=== PATIENT | female | born 1940 | race Caucasian/White ===

== ENCOUNTER → 2016-12-03 | Outpatient (CLI) | payer MEDICARE, BC ==
--- NOTE | 2016-12-04 10:19 | MM ---
Reason for exam: screening (asymptomatic). Last mammogram was performed 3 years and 2 months ago. History: Patient is postmenopausal and has history of high-risk lesion on a previous biopsy at age 70. High risk left breast needle localization of the left breast, June 27, 2010. Physical Findings: A clinical breast exam by your physician is recommended on an annual basis and results should be correlated with mammographic findings. MG Screening Mammo w CAD Bilateral CC and MLO view(s) were taken. Prior study comparison: September 26, 2013, mammogram, performed at [facility]. The breast tissue is heterogeneously dense. This may lower the sensitivity of mammography. Finding: There are fine, heterogeneous, grouped/clustered calcifications in the upper inner quadrant, middle position of the left breast. Previous mammotome biopsy in the left breast. New finding since September 26, 2013. ASSESSMENT: Incomplete: need additional imaging evaluation, BI-RAD 0 RECOMMENDATION: Special view mammogram of the left breast. [facility] will attempt to contact patient to return for supplemental views.
== END | disposition home or self-care (01) ==
LOC: RADMAMWWP 14:45
PROVIDERS: ATTEND Internal Medicine
DX: Z12.31 Encounter for screening mammogram for malignant neoplasm of breast (principal)

== ENCOUNTER → 2016-12-31 | Outpatient (CLI) | payer MEDICARE, BC ==
--- NOTE | 2016-12-31 13:18 | MM ---
Reason for exam: additional evaluation requested from abnormal screening. Last mammogram was performed 1 month ago. History: Patient is postmenopausal and has history of high-risk lesion on a previous biopsy at age 70. High risk left breast needle localization of the left breast, June 27, 2010. Physical Findings: Nurse did not find any significant physical abnormalities on exam. MG 3D Work Up W/Cad LT ML, CC with magnification, and ML with magnification view(s) were taken of the left breast. Prior study comparison: December 03, 2016, bilateral MG screening mammo w CAD. September 26, 2013, mammogram, performed at [facility]. The breast tissue is heterogeneously dense. This may lower the sensitivity of mammography. Finding: There are indeterminate grouped/clustered calcifications in the upper quadrant, central position of the left breast. These results were verbally communicated with the patient and result sheet given to the patient on 12/31/16. ASSESSMENT: Suspicious, BI-RAD 4 RECOMMENDATION: Surgical consultation and needle biopsy of the left breast. Called Dr. Kee with mammographic findings and has scheduled an appointment for the patient for 01/05/17 at 11:[address] Berumen. PRELIMINARY REPORT CALLED AND FAXED TO DR. BERUMEN ON 12/31/16 AT 300/TP.
== END | disposition home or self-care (01) ==
LOC: RADMAMWWP 10:52
PROVIDERS: ATTEND Internal Medicine
DX: R92.8 Other abnormal and inconclusive findings on diagnostic imaging of breast (principal)
CPT/HCPCS: G0206; G0279

== ENCOUNTER → 2017-01-14 | Day surgery (SDC) | payer MEDICARE, BC ==
--- NOTE | 2017-01-14 12:37 | MM ---
EXAMINATION TYPE: MG discontinued stereo core LT DATE OF EXAM: 01/14/2017 11:59 AM COMPARISON: Mammogram 12/31/2016 and 12/03/2016 CLINICAL HISTORY: Abnormal mammogram TECHNIQUE: Stereotactic guided core biopsy of left breast. FINDINGS: The procedure of stereotactic guided core biopsy was explained to the patient. Benefits, a lternatives, and risks were discussed. An informed consent was then obtained. [facility] However, due to thin breast tissue stereotactic biopsy c ould not be performed and needle localization suggested. IMPRESSION: Discontinued stereotactic core biopsy due to enhancement. Thickness of tissue. Needle loc alization suggested.
== END ==
LOC: RADMAMWWP 11:08
PROVIDERS: ATTEND Surgery
DX: R92.8 Other abnormal and inconclusive findings on diagnostic imaging of breast (principal); Z53.8 Procedure and treatment not carried out for other reasons

== ENCOUNTER 2017-01-23 10:41 | Day surgery (SDC) | payer MEDICARE, BC ==
[2017-01-21 10:55] VITALS: BMI 20.7
[~2017-01-23 10:41] MED LIST: ALPRAZolam 0.25 MG TAB PO PRN; DEXAMETHASONE SOD PHOSPHATE 10 MG/ML 1 ML VIAL IV ONE; HYDROmorphone 1 MG/ML 1 ML SYRINGE IVP PRN; LACTATED RINGERS 1,000 ML IV SCH; ONDANSETRON 4 MG/2 ML VIAL IVP ONE; Pre Op ABX Message 1 EACH MISC MISCELLANE ONE
[2017-01-23] MEDS ORDERED: LIDOCAINE 1% INJ 10MG/ML (20 ML MDV) SQ ONE (12:28)
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
[2017-01-23] MEDS ORDERED: LIDOCAINE 1% INJ 10MG/ML (20 ML MDV) ONE (13:42)
[2017-01-23] MEDS ORDERED: MIDAZOLAM 2 MG/2 ML VIAL ONE (13:42)
[2017-01-23] MEDS ORDERED: PROPOFOL 10 MG/ML 20 ML VIAL IV ONE (13:42)
[2017-01-23] MEDS ORDERED: ePHEDrine 50 MG/ML 1 ML AMP ONE (13:42)
[2017-01-23] MEDS ORDERED: SUCCINYLCHOLINE CHLORIDE 100 MG/5 ML SYR IV ONE (13:42)
[2017-01-23] MEDS ORDERED: BUPIVACAIN-EPI 0.25%-1:200,000 30 ML VIAL SQ ONE ×2 (14:02)
--- NOTE | 2017-01-23 14:27 | MM ---
EXAMINATION TYPE: MG pre op needle loc LT DATE OF EXAM: 01/23/2017 COMPARISON: Previous mammogram dated 12/03/2016 CLINICAL HISTORY: TECHNIQUE: Needle localization with wire placement and surgical excision of area of concern in the left breast. FINDINGS: The procedure of needle localization with wire placement and than surgical excision was explained to the patient. Benefits, alternatives, and risks were discussed. An informed consent was then obtained. The shortest pathway for procedure was chosen. Shortest pathway was craniocaudad approach. The overlying skin was prepped and draped in usual sterile fashion. Lidocaine buffered with bicarbonate was used as anesthetic into the skin and subcutaneous tissue up to the level of area of concern. A 5 cm needle was used. It was placed via a craniocaudad approach under mammographic guidance. Subsequent 90 degrees mammogram show the needle to be in satisfactory position relative to the targeted area. At this point, wire was placed and the needle was withdrawn. The wire was fixed to patient's skin. Images were marked for surgeon. The patient tolerated the procedure well without any immediate complication. The patient was kept in the radiology department for short stay after the procedure and then taken to surgery for surgical excision. Targeted calcifications and wire are identified in specimen mammogram. The patient was kept in hospital for short stay after the procedure and then discharged home in stable condition. IMPRESSION: Successful, uncomplicated needle localization with wire placement and surgical excision of suspicious group of calcifications in the left breast, full pathology results to follow. Pathology Results: Benign BREAST, LEFT, NEEDLE LOCALIZATION EXCISION: FIBROCYSTIC CHANGES INCLUDING CYSTS , FIBROSIS AND SCLEROSING ADENOSIS. SEE NOTE. Recommendation Follow up mammogram of the left breast in 6 months. JOE
--- NOTE | 2017-01-23 14:28 | P.OP ---
Date of Procedure: 01/23/17 Preoperative Diagnosis: Abnormal mammogram left breast Postoperative Diagnosis: Abnormal mammogram left breast Procedure(s) Performed: Left needle localized breast biopsy Implants: Anesthesia: JMA Surgeon: Jami Berumen Estimated Blood Loss (ml): 2 Pathology: other (Breast tissue) Condition: stable Disposition: PACU Indications for Procedure: The patient presented with abnormal mammogram. We were unable to do a stereotactic breast biopsy so needle localized breast biopsy was recommended Operative Findings: Description of Procedure: The patient's taken the operative suite where she is prepped and draped in sterile manner. Local anesthetic is instilled in the skin and breast tissue. A small skin incision is made. Dissection was carried guidewire and the guidewire was brought through the incision. The tissue along the end of the guidewire was then sharply excised. Specimen was tagged and mammography. Specimen mammography did show that the area of concern was excised. Small bleeding points were controlled with electrocautery. The skin was closed with 4 -0 Vicryl subcuticular manner. Steri-Strips and dressings were applied. He tolerated the procedure without difficulty was taken recovery room in satisfactory condition. According to or personnel all counts were correct. Plan - Discharge Summary New Discharge Prescriptions: No Action Imipramine [Tofranil] 10 mg PO HS Pravastatin Sodium [Pravachol] 20 mg PO HS Pantoprazole Sodium 40 mg PO 1200 Gabapentin [Neurontin] 300 mg PO TID Multivit-Min/Iron/Folic/Dvp719 [Hair, Skin and Nails Tablet] 1 each PO BID Losartan [Cozaar] 50 mg PO 1200 oxyCODONE ER [OxyCONTIN 15MG E.R] 15 mg PO QID Oxybutynin Chloride [Ditropan XL] 5 mg PO BID Digoxin [Lanoxin] 125 mcg PO DAILY ALPRAZolam [Xanax] 0.5 mg PO TID amLODIPine [Norvasc] 5 mg PO BID Calcium Carbonate [Calcium] 1,200 mg PO QAM Discharge Medication List ALPRAZolam [Xanax] 0.5 mg PO TID 01/21/17 [History] Calcium Carbonate [Calcium] 1,200 mg PO QAM 01/21/17 [History] Digoxin [Lanoxin] 125 mcg PO DAILY 01/21/17 [History] Gabapentin [Neurontin] 300 mg PO TID 01/21/17 [History] Imipramine [Tofranil] 10 mg PO HS 01/21/17 [History] Losartan [Cozaar] 50 mg PO 1200 01/21/17 [History] Multivit-Min/Iron/Folic/Qdl266 [Hair, Skin and Nails Tablet] 1 each PO BID 01/21 [History] Oxybutynin Chloride [Ditropan XL] 5 mg PO BID 01/21/17 [History] Pantoprazole Sodium 40 mg PO 1200 01/21/17 [History] Pravastatin Sodium [Pravachol] 20 mg PO HS 01/21/17 [History] amLODIPine [Norvasc] 5 mg PO BID 01/21/17 [History] oxyCODONE ER [OxyCONTIN 15MG E.R] 15 mg PO QID 01/21/17 [History] Follow up Appointment(s)/Referral(s): Jami Berumen DO [Doctor of Osteopathic Medicine] - 1 Week Activity/Diet/Wound Care/Special Instructions: Maintain current dressing until Thursday. It then may be removed any may shower. Where while supporting bra. Ice to the incision for 24-48 hours. Expect some bruising. Call if questions or concerns. Discharge Disposition: HOME SELF-CARE
--- NOTE | 2017-01-23 14:33 | MM ---
EXAMINATION TYPE: MG pre op needle loc LT DATE OF EXAM: 01/23/2017 COMPARISON: Previous mammogram dated 12/03/2016 CLINICAL HISTORY: TECHNIQUE: Needle localization with wire placement and surgical excision of area of concern in the le ft breast. FINDINGS: The procedure of needle localization with wire placement and than surgical excision was exp lained to the patient. Benefits, alternatives, and risks were discussed. An informed consent was th en obtained. The shortest pathway for procedure was chosen. Shortest pathway was craniocaudad approach. The overl lorene skin was prepped and draped in usual sterile fashion. Lidocaine buffered with bicarbonate was u sed as anesthetic into the skin and subcutaneous tissue up to the level of area of concern. A 5 cm n eedle was used. It was placed via a craniocaudad approach under mammographic guidance. Subsequent 9 0 degrees mammogram show the needle to be in satisfactory position relative to the targeted area. At this point, wire was placed and the needle was withdrawn. The wire was fixed to patient's skin. Im ages were marked for surgeon. The patient tolerated the procedure well without any immediate complication. The patient was kept in the radiology department for short stay after the procedure and then taken to surgery for surgical e xcision. Targeted calcifications and wire are identified in specimen mammogram. The patient was kep t in hospital for short stay after the procedure and then discharged home in stable condition. IMPRESSION: Successful, uncomplicated needle localization with wire placement and surgical excision o f suspicious group of calcifications in the left breast, full pathology results to follow.
[2017-01-23 14:39] VITALS: TEMP 97.8
[2017-01-23 16:12] VITALS: BP 144/64; PULSE 96; RESP 18
== END 2017-01-23 16:41 | disposition home or self-care (01) ==
LOC: OR 10:41
PROVIDERS: ATTEND Surgery
DX: N60.32 Fibrosclerosis of left breast (principal); N60.22 Fibroadenosis of left breast; N60.12 Diffuse cystic mastopathy of left breast; E78.5 Hyperlipidemia, unspecified; R92.8 Other abnormal and inconclusive findings on diagnostic imaging of breast; I10 Essential (primary) hypertension; F17.210 Nicotine dependence, cigarettes, uncomplicated; F41.9 Anxiety disorder, unspecified; Z86.711 Personal history of pulmonary embolism; Z79.899 Other long term (current) drug therapy
CPT/HCPCS: 88307; 76098; 19281; 19120; J2250; J1100; J2405; J2001; J0330; J2704

== ENCOUNTER → 2017-09-02 | Outpatient (CLI) | payer MEDICARE, BC ==
--- NOTE | 2017-09-02 13:29 | MM ---
Reason for exam: additional evaluation requested from prior study. Last mammogram was performed 8 months ago. History: Patient is postmenopausal and has history of high-risk lesion on a previous biopsy at age 70. Benign MG pre op needle loc LT of the left breast, January 23, 2017. MG discontinued stereo core LT of the left breast, January 14, 2017. High risk left breast needle localization of the left breast, June 27, 2010. Physical Findings: Nurse did not find any significant physical abnormalities on exam. MG Diagnostic Mammo LT w CAD CC and MLO view(s) were taken of the left breast. Prior study comparison: December 31, 2016, left breast MG 3d work up w/cad LT. December 03, 2016, bilateral MG screening mammo w CAD. The breast tissue is heterogeneously dense. This may lower the sensitivity of mammography. Stable benign calcifications. Previous mammotome biopsy in the left breast. No significant new findings when compared with previous films. These results were verbally communicated with the patient and result sheet given to the patient on 09/02/17. ASSESSMENT: Benign, BI-RAD 2 RECOMMENDATION: Return to routine screening mammogram schedule for both breasts. Back on schedule.
== END | disposition home or self-care (01) ==
LOC: RADMAMWWP 12:36
PROVIDERS: ATTEND Internal Medicine
DX: R92.8 Other abnormal and inconclusive findings on diagnostic imaging of breast (principal)
CPT/HCPCS: 77065

== ENCOUNTER 2017-12-18 11:06 | Day surgery (SDC) | payer MEDICARE, BC ==
[2017-12-16 16:16] VITALS: BMI 21.9
[~2017-12-18 11:06] MED LIST changes: -ALPRAZolam 0.25 MG TAB PO PRN; -DEXAMETHASONE SOD PHOSPHATE 10 MG/ML 1 ML VIAL IV ONE; -HYDROmorphone 1 MG/ML 1 ML SYRINGE IVP PRN; -ONDANSETRON 4 MG/2 ML VIAL IVP ONE; -Pre Op ABX Message 1 EACH MISC MISCELLANE ONE
[2017-12-18 12:04] VITALS: RESP 16; TEMP 97.7
[2017-12-18] MEDS ORDERED: PROPOFOL 10 MG/ML 20 ML VIAL IV ONE (12:24)
[2017-12-18] MEDS ORDERED: IV FLUID CONTINUATION 1,000 ML IV ONE (12:48)
[2017-12-18 12:50] VITALS: PULSE 66
--- NOTE | 2017-12-18 12:52 | P.PCN ---
Date of Procedure: 12/18/17 Procedure(s) Performed: BRIEF HISTORY: Patient is a 77-year-old pleasant white female, scheduled for an elective colonoscopy as a part of evaluation of chronic constipation and intermittent rectal bleeding for the last few months duration. PROCEDURE PERFORMED: Colonoscopy with snare polypectomy. PREOPERATIVE DIAGNOSIS: Rectal bleeding and chronic constipation. IV sedation per Anesthesia. PROCEDURE: After informed consent was obtained, the patient, was brought into the endoscopy unit. IV sedation was administered by Anesthesia under continuous monitoring. Digital rectal examination was normal. Initially the Olympus CF- 160 flexible video colonoscope was then inserted in the rectum, gradually advanced into the cecum without any difficulty. Careful examination was performed as the scope was gradually being withdrawn. Ileocecal valve and the appendiceal orifice were visualized and appeared normal. Prep was excellent. Mucosa of the cecum, ascending colon, transverse colon, descending colon, sigmoid colon, and rectum appeared normal. In the sigmoid colon there was a 7- 8 mm flat polyp that was removed by snare polypectomy. Retroflexion was performed in the rectum and grade 2 internal hemorrhoids were seen. The patient tolerated the procedure well. IMPRESSION: 7-8 mm flat sigmoid colon polyp status post polypectomy Grade 2 internal hemorrhoids RECOMMENDATIONS: Findings of this examination were discussed with the patient as well as her family. She was advised to follow with the biopsy results. She will continue with high-fiber diet and take fiber supplements a regular basis..
[2017-12-18 13:15] VITALS: BP 136/75
--- NOTE | 2017-12-23 11:13 | CDI ---
Outpatient Documentation Clarification Form Date: 12/23/17 CDS/Band Aid Machine Operator Name: Vikki Cantrell Phone: If any questions, call Greta Velazco Licensed Guide at [phone] Patient Name: Shaina Chen Admit Date: 12/18/17 Discharge Date: 12/18/17 ATTENTION: The [facility] Coding Staff appreciate your assistance in clarifying documentation. Please respond to the clarification below the line at the bottom and electronically sign. The [facility] Coding staff will review the response and follow-up if needed. Please note: Queries are made part of the Legal Health Record. If you have any questions, please contact the Licensed Guide. Dear Dr. Herrera, What is the cause of the rectal bleeding? Thank you for your kind consideration. Bleeding from internal hemorrhoids Dr.K Herrera MTDD
== END 2017-12-18 13:25 | disposition home or self-care (01) ==
LOC: ORWHC2ENDO 11:06
PROVIDERS: ATTEND Internal Medicine Gastroenterology
DX: K63.5 Polyp of colon (principal); K64.1 Second degree hemorrhoids; K59.09 Other constipation; K21.9 Gastro-esophageal reflux disease without esophagitis; I10 Essential (primary) hypertension; E78.5 Hyperlipidemia, unspecified; Z86.718 Personal history of other venous thrombosis and embolism; Z86.711 Personal history of pulmonary embolism; Z79.891 Long term (current) use of opiate analgesic; Z79.899 Other long term (current) drug therapy; Z72.0 Tobacco use; Z88.8 Allergy status to other drugs, medicaments and biological substances
CPT/HCPCS: 88305; 45385; J2704

== ENCOUNTER → 2018-01-27 | Outpatient (CLI) | payer MEDICARE, BC ==
--- NOTE | 2018-02-01 13:27 | MM ---
Reason for exam: screening (asymptomatic). Last mammogram was performed 5 months ago. History: Patient is postmenopausal and has history of high-risk lesion on a previous biopsy at age 70. Benign MG pre op needle loc LT of the left breast, January 23, 2017. MG discontinued stereo core LT of the left breast, January 14, 2017. High risk left breast needle localization of the left breast, June 27, 2010. Physical Findings: A clinical breast exam by your physician is recommended on an annual basis and results should be correlated with mammographic findings. MG 3D Screening Mammo W/Cad Bilateral CC and MLO view(s) were taken. Prior study comparison: September 02, 2017, left breast MG diagnostic mammo LT w CAD. December 31, 2016, left breast MG 3d work up w/cad LT. The breast tissue is heterogeneously dense. This may lower the sensitivity of mammography. Finding: There are typically benign stable grouped/clustered calcifications in both breasts. Previous mammotome biopsy in the left breast. No significant changes in finding since September 02, 2017 and December 31, 2016. ASSESSMENT: Benign, BI-RAD 2 RECOMMENDATION: Routine screening mammogram of both breasts in 1 year.
== END | disposition home or self-care (01) ==
LOC: RADMAMWWP 13:15
PROVIDERS: ATTEND Internal Medicine
DX: Z12.31 Encounter for screening mammogram for malignant neoplasm of breast (principal)
CPT/HCPCS: 77063; 77067

== ENCOUNTER → 2019-04-06 | Outpatient (CLI) | payer MEDICARE, BC ==
--- NOTE | 2019-04-07 14:14 | MM ---
Reason for exam: screening (asymptomatic). Last mammogram was performed 1 year and 2 months ago. History: Patient is postmenopausal and has history of high-risk lesion on a previous biopsy at age 70. Benign MG pre op needle loc LT of the left breast, January 23, 2017. MG discontinued stereo core LT of the left breast, January 14, 2017. High risk left breast needle localization of the left breast, June 27, 2010. Physical Findings: A clinical breast exam by your physician is recommended on an annual basis and results should be correlated with mammographic findings. MG 3D Screening Mammo W/Cad Bilateral CC and MLO view(s) were taken. Prior study comparison: January 27, 2018, bilateral MG 3d screening mammo w/cad. September 02, 2017, left breast MG diagnostic mammo LT w CAD. The breast tissue is heterogeneously dense. This may lower the sensitivity of mammography. Benign appearing bilateral calcifications. No suspicious abnormality. No significant changes when compared with prior studies. ASSESSMENT: Benign, BI-RAD 2 RECOMMENDATION: Routine screening mammogram of both breasts in 1 year.
== END | disposition home or self-care (01) ==
LOC: RADMAMWWP 13:22
PROVIDERS: ATTEND Internal Medicine
DX: Z12.31 Encounter for screening mammogram for malignant neoplasm of breast (principal)
CPT/HCPCS: 77063; 77067

== ENCOUNTER → 2019-10-19 | Outpatient (CLI) | payer BC, MEDICARE, OTHER ==
[2019-10-19 13:11] LABS: African American GFR (CKD) >90 (>60 ml/min/1.73 sqM); Blood Urea Nitrogen 11 mg/dL (7-17); Non-African American GFR(CKD) 84 (>60 ml/min/1.73 sqM)
--- NOTE | 2019-10-21 08:08 | CT ---
EXAMINATION TYPE: CT angio tho/abd W Run Off DATE OF EXAM: 10/19/2019 HISTORY: Leg pain subclavian stenosis, aortailliac LUCIANA COMPARISON: None CT DLP: 1132.7 mGycm. Automated Exposure Control for Dose Reduction was Utilized. TECHNIQUE: CTA scan of the neck is performed without and with IV Contrast, patient injected with 125 mL of Isovue 370, axial images are obtained, coronal and sagittal reformatted images are reviewed. T hree-D reconstructed images are created on an independent workstation and reviewed. Source images ar e reviewed. FINDINGS: CT sections through the lungs appear clear. Some mild emphysematous change may be present. No suspici ous masses are evident. Portion of the thyroid visualized is normal. Vascular calcifications within t he great vessels and the aorta. Appendicolith may be present. Loops of bowel without oral contrast appear within normal limits. Dista l rectum may have some thickening of the nondistended colon. Consider follow-up evaluation within the rectal region. Nonobstructing calcifications are within the inferior pole left kidney. There appears to be some cortical calcification in a linear pattern with thinning of the cortex of the mid left ki dney. No mediastinal or hilar adenopathy is evident. No adenopathy within the abdomen is evident. The ascending thoracic aorta at the level of main pulmonary artery is 3.7 cm. The main pulmonary kailash ry the bifurcation is 3.1 cm. Degenerative changes and old fracture of the right pubic symphysis is noted. CTA: 3 reconstructed images performed on a separate computer are presented and rotated for evaluation . Note is made of obstruction of posterior tibial arteries bilaterally within the proximal to mid por tions. Vascular calcifications within the aorta. Ascending thoracic aorta at the aortic root is 3.2 cm. The aorta at the main pulmonary artery is 3.1 cm. Aorta at the aortic arch has a transverse dimension of 2.7 cm. The distal descending thoracic aorta is 3.3 cm. The aorta at the diaphragm is 2.4 cm. There i s some fullness of the aorta below both renal arteries measuring 2.8-3.1 cm AP. There is prominence o f the right common iliac artery at the bifurcation measuring 1.8 cm. The left common iliac artery simba ears normal in caliber at 1.1 cm. Distal right common iliac artery prominence is present measuring 1. 6 cm. Runoff: Right proximal superficial femoral artery has atheromatous plaquing with moderate to severe n arrowing within its proximal portion. Superficial femoral artery caliber appears small throughout its visualized course. Popliteal artery is patent. Distal popliteal artery is more difficult to confirm is patent. However, there is good contrast within the proximal trifurcation vessels. Anterior tibial and perineal artery is extending to the level of the ankle. Posterior tibial artery appears occluded proximally. Left superficial femoral artery caliber appears somewhat small with extensive calcificati on. Popliteal artery is patent. Anterior and posterior tibial arteries and peroneal arteries are isaac nt proximally. Posterior tibial artery appears occluded within the midportion of the calf. Anterior t ibial and peroneal arteries appear to extend to the level of the ankle. IMPRESSION: 1. No definite obstruction of the superficial femoral arteries. However, caliber bilaterally appears somewhat small compared to the popliteal arteries. 2. Suspected focal stenosis within the proximal right superficial femoral artery. 3. Posterior tibial arteries appear occluded within the proximal portion on the right within the midp ortion on the left. Remaining trifurcation vessels bilaterally extending to the level of the ankles. 4. Mild fusiform prominence within the distal thoracic descending aorta and within the mid abdominal aorta. 5. Fusiform prominence of the left common iliac artery and to a lesser degree distal right iliac kailash ry. 6. Fusiform prominence distal rectosigmoid region. Consider additional workup 7. Emphysematous changes within the lungs. 8. Appendicolith may be present.
== END | disposition home or self-care (01) ==
LOC: RADCTMAIN 12:20
PROVIDERS: ATTEND Surgery
DX: I77.89 Other specified disorders of arteries and arterioles (principal); J43.9 Emphysema, unspecified; I70.8 Atherosclerosis of other arteries
CPT/HCPCS: 82565; 84520; 75635; 71275; 36415; Q9967

== ENCOUNTER → 2020-07-03 | Outpatient (CLI) | payer MEDICARE, BC ==
--- NOTE | 2020-07-03 11:32 | XR ---
EXAMINATION TYPE: XR lumbosacral spine min 4V DATE OF EXAM: 07/03/2020 CLINICAL HISTORY: pain COMPARISON: NONE TECHNIQUE: Frontal, lateral, and oblique images of the lumbar spine are obtained. FINDINGS: There are 5 lumbar type vertebral bodies identified. Severe loss of height involving the L 3 vertebral segment with loss of height estimated at 75%. Moderate to severe loss of height involving L1 with loss of height estimated at approximately 50%. Mild superior endplate loss of height involvi ng L4 with loss of height of 25%. Severe multilevel degenerative disc disease. Facet joint arthropath y. IMPRESSION: Multilevel compression fractures noted
--- NOTE | 2020-07-03 11:35 | XR ---
EXAMINATION TYPE: XR thoracic spine complete DATE OF EXAM: 07/03/2020 CLINICAL HISTORY: pain TECHNIQUE: Frontal, lateral, and swimmer's view of thoracic spine are obtained. COMPARISON: None. FINDINGS: Wedge compression fracture of T9 with loss of height estimated at 60-70%. Mild loss of heig ht involving T5 and T6. Loss of height is of uncertain age and/or etiology. No bony destructive proce ss seen. Curvature noted. Moderate to multilevel degenerative disc space narrowing. IMPRESSION: . Loss of height is of uncertain age and/or etiology.
--- NOTE | 2020-07-03 15:17 | NM ---
EXAMINATION TYPE: NM bone scan whole body DATE OF EXAM: 07/03/2020 COMPARISON: Radiographs of the thoracic and lumbar spine from the same day. HISTORY: Back pain Delayed whole-body scanning was performed following the injection of 21.1 mCi Tc 99m MDP. Images acq uired 3 hours post injection. FINDINGS: Mildly increased uptake involving the T9 vertebral segment compatible with fracture on recent plain f ilm radiographs. Lumbar compression fractures noted on the plain film radiographs do not demonstrate increased uptake. Degenerative uptake is seen throughout the thoracolumbar spine. Degenerative uptake is also seen about the shoulders and bilateral ankles. IMPRESSION: Compression fractures noted on plain film radiographs are not acute as there is only minimal linear i ncreased uptake noted at the T9 level. No destructive changes seen or evidence for metastatic disease .
== END | disposition home or self-care (01) ==
LOC: RADNMMAIN 09:56
PROVIDERS: ATTEND Neurological Surgery
DX: S32.009A Unspecified fracture of unspecified lumbar vertebra, initial encounter for closed fracture (principal); M53.84 Other specified dorsopathies, thoracic region; R93.7 Abnormal findings on diagnostic imaging of other parts of musculoskeletal system
CPT/HCPCS: 72072; 72110; 78306; A9503

== ENCOUNTER 2020-09-05 07:41 | Day surgery (SDC) | payer MEDICARE, BC ==
[2020-08-30 11:49] VITALS: BMI 19.8
[~2020-09-05 07:41] MED LIST changes: +ALPRAZolam 0.25 MG TAB PO PRN; -LACTATED RINGERS 1,000 ML IV SCH; +SODIUM CHLORIDE 0.9% 1,000 ML in EMPTY BAG 1 BAG IV ONE
[2020-09-05] MEDS ORDERED: SODIUM CHLORIDE 0.9% 1,000 ML IV ONE (07:51)
[2020-09-05 08:09] VITALS: RESP 16; TEMP 98.9
[2020-09-05] MEDS ORDERED: LIDOCAINE 1% INJ 10MG/ML (20 ML MDV) ONE (08:19)
[2020-09-05] MEDS ORDERED: ASPIRIN 325 MG TAB ONE (08:20)
[2020-09-05 08:46] LABS: Basophils % (A) 0 %; Eosinophils # (A) 0.1 k/uL (0-0.7); Eosinophils % (A) 1 %; Lymphocytes # (A) 0.9 k/uL (1.0-4.8); Lymphocytes % (A) 10 %; MCHC 31.7 g/dL (31.0-37.0); Macrocytosis Slight; Mean Platelet Volume 8.7; Monocytes # (A) 0.5 k/uL (0-1.0); Monocytes % (A) 6 %; Neutrophils # (A) 7.3 k/uL (1.3-7.7); Neutrophils % (A) 82 %; Platelet Count 104 k/uL (150-450); RBC 3.94 m/uL (3.80-5.40); RDW 13.8 % (11.5-15.5)
[2020-09-05 08:50] LABS: Calcium 9.5 mg/dL (8.4-10.2); Potassium 3.9 mmol/L (3.5-5.1)
[2020-09-05] MEDS: MIDAZOLAM 2 MG/2 ML VIAL IV ONE ×2 (09:06→09:25)
[2020-09-05] MEDS: LIDOCAINE 1% INJ 10MG/ML (20 ML MDV) SQ ONE ×2 (09:11→09:25)
[2020-09-05] MEDS ORDERED: HEPARIN SODIUM 1,000 UN/ML (10ML VL) ONE (09:20)
[2020-09-05] MEDS ORDERED: VERAPAMIL 2.5 MG/ML 2 ML AMP ONE (09:20)
[2020-09-05] MEDS ORDERED: VERAPAMIL SYRINGE (5 MG/10 ML) INTRAARTER ONE (09:25)
[2020-09-05] MEDS ORDERED: HEPARIN SODIUM 1,000 UN/ML (10ML VL) IV ONE (09:33)
[2020-09-05] MEDS ORDERED: IOPAMIDOL-250 100ML BTL INTRAARTER ONE (09:53)
[2020-09-05] MEDS ORDERED: SODIUM CHLORIDE 0.9% 1,000 ML IV SCH (10:00)
--- NOTE | 2020-09-05 10:31 | AN ---
ANGIOGRAPHY REPORT DATE OF SERVICE: September 05, 2020. PERFORMING PHYSICIAN: Kamran Feng MD. PROCEDURE PERFORMED: 1. An abdominal aortogram. 2. Bilateral lower extremities runoff. 3. An ultrasound guided access of the right common femoral artery. COMPLICATION: None. LEVEL OF SEDATION: Moderate with sedation length of 24 minutes. INDICATION: Bilateral lower extremities intermittent claudication. PROCEDURE DESCRIPTION: After obtaining an informed consent, the patient was brought to the cardiac clinical lab scientist. Initially the right common femoral artery was cannulated using micropuncture technique under ultrasound guidance, the micropuncture wire passed easily then I was unable to advance a 0.035 wire and because of that I aborted the groin approach and I decided to come from the arm. The right radial artery was cannulated using micropuncture technique, the micropuncture wire passed easily then I placed a 5-Tunisian sheath at the right radial artery. An abdominal aortogram and bilateral lower extremities runoff were performed using 5- Tunisian pigtail catheter which was initially placed at the level of the renal arteries then it was pulled into above the bifurcation of the aorta to right and left common iliac arteries. The procedure was completed without any complication. SELECTIVE PERIPHERAL ANGIOGRAM: 1. The aorta is extremely tortuous and extremely calcified with mild to moderate diffuse disease only. It bifurcates distally into the right and left common iliac arteries. 2. Common Iliac Arteries: The right and left common iliac arteries are extremely tortuous and extremely calcified with severe disease bilaterally. 3. External iliac arteries appeared to be also extremely calcified and extremely tortuous and the right external iliac artery has a lesion appeared to be in the range of 99.9% and the left external iliac artery appeared to be occluded. 4. Common Femoral Arteries: The right common femoral artery appeared to have mild disease only and the left common femoral artery appeared to be occluded. 5. The right and left internal are patent. 6. Profunda: Both profunda are patent. 7. SFA: The right and left SFA are diffusely diseased with only mild disease on the right side and severe disease in the distal left SFA. 8. Popliteals: The right popliteal is occluded. The left popliteal has mild to moderate disease only. 9. Below the knee: There are 2-vessel runoff below the knee on the right side with anterior tibial and peroneal and on the left side with anterior tibial and peroneal as well. CONCLUSION: 1. Extremely calcified and tortuous peripheral system of the lower extremities. 2. 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 3. Critical right external iliac and occluded left external iliac. 4. Occluded right popliteal and severe disease involving the left SFA. 5. Two-vessel runoff below the knee bilaterally with anterior tibial and peroneal. POSTPROCEDURE MANAGEMENT: 1. I am going to discharge the patient today home. 2. See the patient in the office and address the options of surgical revascularization with her. MMODL / IJN: [id number] /
[2020-09-05] MEDS ORDERED: oxyCODONE-APAP 10-325MG 1 EACH TAB PO PRN (11:33)
--- NOTE | 2020-09-05 11:35 | IR ---
EXAMINATION TYPE: IR angio abdominal w runoff DATE OF EXAM: 09/05/2020 COMPARISON: NONE HISTORY: Fluoroscopy time. Fluoroscopy was provided to the referring clinician.
[2020-09-05] MEDS ORDERED: GABAPENTIN 300 MG CAP PO SCH (11:45)
[2020-09-05] MEDS ORDERED: PANTOPRAZOLE 40 MG TABLET PO SCH (12:00)
[2020-09-05 14:29] VITALS: BP 103/57; PULSE 57
== END 2020-09-05 15:00 | disposition home or self-care (01) ==
LOC: CATHCVL 07:41
PROVIDERS: ATTEND Internal Medicine Interventional Cardiology
DX: I73.9 Peripheral vascular disease, unspecified (principal); I77.1 Stricture of artery; I70.0 Atherosclerosis of aorta; I70.8 Atherosclerosis of other arteries; I77.89 Other specified disorders of arteries and arterioles
CPT/HCPCS: 36200; 75625; 75716; 80048; 85025; C1769 ×5; C1894; J2250; J2001; J1644; Q9966

== ENCOUNTER 2020-10-03 09:43 | Day surgery (SDC) | payer MEDICARE, BC ==
[2020-10-01 10:03] VITALS: BMI 19.8
[~2020-10-03 09:43] MED LIST changes: +ASPIRIN 325 MG TAB PO PRN; +LACTATED RINGERS 1,000 ML IV SCH; +ZOLPIDEM 5 MG TAB PO PRN
[2020-10-03 10:29] LABS: Basophils % (A) 1 %; Eosinophils # (A) 0.1 k/uL (0-0.7); Eosinophils % (A) 2 %; HCT 42.7 % (34.0-46.0); HGB 13.6 gm/dL (11.4-16.0); Lymphocytes # (A) 0.9 k/uL (1.0-4.8); Lymphocytes % (A) 12 %; MCH 33.1 pg (25.0-35.0); MCHC 31.8 g/dL (31.0-37.0); MCV 104.1 fL (80.0-100.0); Macrocytosis Slight; Mean Platelet Volume 8.8; Monocytes # (A) 0.4 k/uL (0-1.0); Monocytes % (A) 5 %; Neutrophils # (A) 6.2 k/uL (1.3-7.7); Neutrophils % (A) 79 %; Platelet Count 107 k/uL (150-450); RDW 14.1 % (11.5-15.5); WBC 7.9 k/uL (3.8-10.6)
[2020-10-03] MEDS: HYDROmorphone 0.5 MG/0.5 ML SYRINGE IVP PRN ×3 (11:35→19:00)
[2020-10-03] MEDS ORDERED: SUCCINYLCHOLINE CHLORIDE 100 MG/5 ML SYR IV ONE (12:24)
[2020-10-03] MEDS ORDERED: LIDOCAINE 1% INJ 10MG/ML (20 ML MDV) ONE (12:24)
[2020-10-03] MEDS ORDERED: HYDROmorphone (PF) 1 MG/ML ONE (12:24)
[2020-10-03] MEDS ORDERED: GLYCOPYRROLATE 0.2 MG/ML 2 ML VIAL ONE (12:24)
[2020-10-03] MEDS ORDERED: PROPOFOL 10 MG/ML 20 ML VIAL IV ONE (12:24)
[2020-10-03] MEDS ORDERED: ePHEDrine SULFATE/0.9% NACL/PF 50 MG/5 ML SYRINGE IV ONE (12:24)
[2020-10-03] MEDS ORDERED: ONDANSETRON 4 MG/2 ML VIAL ONE (12:24)
[2020-10-03] MEDS ORDERED: HEPARIN SODIUM,PORCINE 10,000 UNIT/ML 1 ML VIAL ONE (12:24)
[2020-10-03] MEDS ORDERED: PROTAMINE SULFATE 10 MG/ML 5 ML VIAL IV ONE (12:24)
[2020-10-03] MEDS ORDERED: ROCURONIUM 10 MG/ML (10 ML VIAL) IV ONE (12:24)
[2020-10-03] MEDS ORDERED: PHENYLEPHRINE-0.9% NACL SYG 1,000 MCG/10 ML SYRINGE ONE (12:24)
[2020-10-03] MEDS ORDERED: DEXAMETHASONE SOD PHOSPHATE 10 MG/ML 1 ML VIAL ONE (12:24)
[2020-10-03] MEDS ORDERED: fentaNYL (PF) 50 MCG/ML 2 ML AMP ONE (12:24)
[2020-10-03] MEDS ORDERED: LIDOCAINE 1% INJ 10MG/ML (20 ML MDV) SQ ONE (12:46)
[2020-10-03] MEDS ORDERED: VERAPAMIL SYRINGE (5 MG/10 ML) INTRAARTER ONE (14:35)
[2020-10-03] MEDS ORDERED: FUROSEMIDE 20 MG TAB PO PRN (17:49)
[2020-10-03] MEDS ORDERED: SODIUM CHLORIDE 0.9% 1,000 ML in EMPTY BAG 1 BAG IV SCH (18:00)
[2020-10-03] MEDS ORDERED: NON FORMULARY DRUG (Ibandronate Sodium [Boniva] 150 MG Tablet) PO SCH (18:00)
[2020-10-03] MEDS ORDERED: IOPAMIDOL-250 100ML BTL INTRAARTER ONE (18:35)
--- NOTE | 2020-10-03 20:30 | PCN ---
PROCEDURE NOTE DATE OF SERVICE: 10/03/2020 PERFORMING PHYSICIAN: Kamran Feng M.D. PROCEDURES PERFORMED: 1. Successful stenting of the right and left common iliac arteries using 8.0 x 59 and 7.0 x 59 balloon-expandable stents with excellent angiographic results. 2. Atherectomy of the left common femoral artery using the TurboHawk device. 3. Successful balloon angioplasty of the left common femoral artery using a 6 x 40 mm Chocolate balloon with excellent angiographic results. 4. Intravascular ultrasound (IVUS) of the left common femoral artery and left iliac artery. 5. Selective angiogram of the bilateral iliacs as well as bilateral common femoral arteries. 6. Selective angiogram of the left popliteal and left SFA. 7. Ultrasound-guided access of bilateral common femoral arteries and left popliteal arteries. INDICATION: This is a 80-year-old female patient with a history of smoking who was experiencing symptoms of intermittent claudication. The symptoms were severe and interfering with her daily activities and worse on the left side than the right side. She underwent an arterial duplex study and that came in to be abnormal and subsequently she underwent an angiogram which revealed severe aortoiliac disease with occluded left external iliac artery and also severe femoropopliteal disease bilaterally. She was brought today to undergo an intervention. APPROACH: 1. Right common femoral artery. 2. Right radial artery. 3. Left popliteal artery. COMPLICATIONS: None. LEVEL OF SEDATION: Deep sedation was performed and the case was performed under general anesthesia with STEAM ROOM ATTENDANT in the room. The length of the case was 5 hours and the case was extremely complex. PROCEDURE DESCRIPTION: After obtaining informed consent, the patient was brought to the cardiac laborer wrecking and salvaging. Under ultrasound guidance, the right common femoral artery was accessed. I did place a 6-Malawian 23 cm BRITE TIP sheath at the right common femoral artery. I had a hard time wiring the right common and right external iliac artery using an 0.035 wire. Subsequently the wire was advanced all the way to the aorta. Because I had a hard time wiring the iliac artery, I knew there was a lesion there; and as a matter of fact, I felt a weak pulse in the right groin. With that being said, I did an angiogram of the right common and right external iliac arteries. That revealed extremely tortuous and calcified arteries with critical disease there. I did balloon angioplasty in that area using initially a 4 mm and subsequently a 6 mm balloon. I did that just to be able to get my sheath up and over to go to the left side. Attempting going up and over from the right groin to the left SFA was unsuccessful in spite of multiple attempts using a RIM catheter as well as Omni Flush catheter. That was because of the extremely tortuous aortoiliac and no support and extremely calcified aortoiliac segments. Because of that I decided to come from a radial approach. I accessed the right radial artery using micropuncture technique. The micropuncture wire passed easily. Then I was able to place a 110 cm 6-Malawian Raabe sheath. The sheath of course was advanced with difficulty because of type 3 aortic arch and difficulty pushing it all the way to the descending aorta. The sheath was prolapsing in the ascending aorta multiple times. Using a stiff wire, which was an Amplatzer wire, I was able to get the sheath all the way to the distal abdominal aorta. Of course that was performed under fluoroscopic guidance. 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 I could not advance the catheter from above in antegrade technique distal to the DATA ENTRY ASSOCIATE lesion in the iliac artery over the 0.035 stiff Glidewire because of the extremely calcified and tortuous aortoiliac and again because of lacking the ability to push the radial sheath because it was prolapsing in the ascending aorta. Because of that I decided to access the left popliteal artery and snare the wire from there. I did access the left popliteal artery using micropuncture technique under ultrasound guidance, and I placed a 6-Malawian sheath at the left popliteal artery. After that I did snare the wire from antegrade approach to the popliteal sheath. After that I did exchange my wire, which was an 0.035 wire. Subsequently I did snare the wire and I exchanged my 0.035 wire which was a stent for an 0.014 wire using an 0.035 catheter. After that I did intravascular ultrasound (IVUS) of the left iliac and left common femoral artery. I was in the true lumen all the way. After that I did balloon angioplasty of the left common iliac and left external iliac using a 4 mm balloon. After that I did ballooning of the left iliac using a 6 mm balloon. Subsequently I deployed 2 balloon-expandable stents. The first one was in the left common iliac artery and the second one was in the left external iliac artery. The first one, which was in the left common iliac artery, was 8 x 59. The second one, which was in the left external iliac artery, was 7 x 59. The following angiogram showed good angiographic results in the left iliac artery, but the left common femoral artery had a lesion. I decided to perform atherectomy on that using the TurboHawk, and that was performed. After that I did Chocolate balloon with 6 mm balloon. The final angiogram showed great angiographic results. I ended the case of fixing the right common and right external iliac artery using the same-sized stent for the left. I placed in the right common iliac artery an 8 x 59 and in the right external iliac artery a 7 x 59. The procedure was completed without any complication. I did pull the long sheath out in the middle of the procedure in the right radial artery and I placed a TR band. I exchanged my right common femoral artery sheath for an 11 cm sheath. The procedure was completed without any complication. POST-PROCEDURE MANAGEMENT: 1. Dual anti-platelet therapy. 2. Risk factor modifications. 3. Follow up with the patient. MMODL / IJN: [id number] /
[2020-10-03] MEDS ORDERED: ATORVASTATIN 80 MG TAB PO SCH (21:00)
[2020-10-03] MEDS: oxyCODONE-APAP 10-325MG 1 EACH TAB PO PRN (21:45)
[2020-10-03] MEDS: GABAPENTIN 300 MG CAP PO SCH (21:46)
[2020-10-03] MEDS: ALPRAZolam 0.25 MG TAB PO SCH (21:46)
[2020-10-04] MEDS: oxyCODONE-APAP 10-325MG 1 EACH TAB PO PRN (05:45)
[2020-10-04] MEDS ORDERED: CLOPIDOGREL 75 MG TAB PO SCH (09:00)
[2020-10-04] MEDS ORDERED: NON FORMULARY DRUG (Turmeric Root Extract [Turmeric] 500 MG Capsule) PO SCH (09:00)
[2020-10-04] MEDS ORDERED: FUROSEMIDE 40 MG TAB PO SCH (09:00)
[2020-10-04] MEDS ORDERED: DIGOXIN 125 MCG TAB PO SCH (09:00)
[2020-10-04] MEDS ORDERED: MULTIVITAMINS, THERA 1 EACH TAB PO SCH (09:00)
[2020-10-04] MEDS ORDERED: CALCIUM CARB-VIT D 500 MG-5 MCG TAB PO SCH (09:00)
[2020-10-04] MEDS ORDERED: amLODIPine 2.5 MG TAB PO SCH (09:00)
[2020-10-04] MEDS ORDERED: ASPIRIN 325 MG TAB PO SCH (09:00)
[2020-10-04] MEDS: GABAPENTIN 300 MG CAP PO SCH (09:18)
[2020-10-04] MEDS: ALPRAZolam 0.25 MG TAB PO SCH (09:18)
[2020-10-04 09:30] VITALS: BP 119/68; PULSE 75; RESP 16; TEMP 97.9
[2020-10-04 10:03] LABS: Basophils % (A) 0 %; Eosinophils % (A) 0 %; HCT 38.3 % (34.0-46.0); HGB 12.2 gm/dL (11.4-16.0); Lymphocytes % (A) 7 %; MCH 33.4 pg (25.0-35.0); MCHC 31.8 g/dL (31.0-37.0); MCV 105.2 fL (80.0-100.0); Macrocytosis Moderate; Mean Platelet Volume 9.1; Monocytes # (A) 0.8 k/uL (0-1.0); Monocytes % (A) 6 %; Neutrophils # (A) 11.8 k/uL (1.3-7.7); Neutrophils % (A) 86 %; Platelet Count 109 k/uL (150-450); RBC 3.64 m/uL (3.80-5.40); RDW 13.6 % (11.5-15.5); WBC 13.7 k/uL (3.8-10.6)
[2020-10-04 10:29] LABS: Calcium 9.4 mg/dL (8.4-10.2); Potassium 4.1 mmol/L (3.5-5.1)
--- NOTE | 2020-10-04 11:37 | IR ---
Fluoroscopy HISTORY: Pain in leg 93.5 minutes fluoroscopy time supplied to the referring clinician. 388 intraoperative C-arm images d ocument the procedure. See dictated report from cardiology.
[2020-10-04] MEDS ORDERED: PANTOPRAZOLE 40 MG TABLET PO SCH (12:00)
[2020-10-04] MEDS ORDERED: ALPRAZolam 0.5 MG TAB PO SCH (12:00)
--- NOTE | 2020-10-04 17:44 | DS ---
DISCHARGE SUMMARY BRIEF HISTORY: This is a very pleasant 80-year-old female patient who was diagnosed recently with critical limb ischemia of the left foot and underwent an angiogram that showed severe aortoiliac disease bilaterally. She underwent successful stenting of the right and left common iliac artery with a very long and complex procedure due to extremely calcified and tortuous aortoiliac segments. The procedure was performed from the right radial artery as well as right common femoral artery as well as left popliteal artery. The procedure was completed without any complication. The patient was seen this morning. She does have good pulses by Doppler bilaterally. All sites are looking good except for the right radial artery, which is only bruised, but with a good pulse. The patient is going to be discharged home on dual anti-platelet therapy and high- intensity statin. She will be seen in the office next week. FELIX / RAMIN: [id number] /
== END 2020-10-04 13:32 | disposition home or self-care (01) ==
LOC: CATHCVL 09:43 → 3SCARD 17:48 → CATHCVL 10-04 13:32
PROVIDERS: ATTEND Internal Medicine Interventional Cardiology
DX: I70.245 Atherosclerosis of native arteries of left leg with ulceration of other part of foot (principal); L97.529 Non-pressure chronic ulcer of other part of left foot with unspecified severity; I70.201 Unspecified atherosclerosis of native arteries of extremities, right leg; I70.92 Chronic total occlusion of artery of the extremities; I77.1 Stricture of artery; I77.9 Disorder of arteries and arterioles, unspecified; F17.210 Nicotine dependence, cigarettes, uncomplicated; I25.10 Atherosclerotic heart disease of native coronary artery without angina pectoris; I10 Essential (primary) hypertension; I34.1 Nonrheumatic mitral (valve) prolapse; E78.5 Hyperlipidemia, unspecified; E78.00 Pure hypercholesterolemia, unspecified; M19.90 Unspecified osteoarthritis, unspecified site; M81.0 Age-related osteoporosis without current pathological fracture; Z79.891 Long term (current) use of opiate analgesic; Z79.899 Other long term (current) drug therapy; Z97.2 Presence of dental prosthetic device (complete) (partial); Z88.8 Allergy status to other drugs, medicaments and biological substances; Z88.6 Allergy status to analgesic agent; Z91.030 Bee allergy status; Z98.890 Other specified postprocedural states
CPT/HCPCS: 37221 ×2; 37225; 85347; 37252; 80048; 85025 ×2; C1894 ×7; C1773; C1769 ×9; C1725 ×4; C1887 ×2; C1714; C1753; C1876; J2001; J1170; Q9966

== ENCOUNTER 2021-01-28 13:12 | Emergency (ER) | payer MEDICARE, BC ==
[2021-01-28 13:50] VITALS: RESP 18
[2021-01-28] MEDS ORDERED: MORPHINE SULFATE 4 MG/ML SYRINGE IM STA (14:54)
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
--- NOTE | 2021-01-28 15:35 | XR ---
EXAMINATION TYPE: XR lumbar spine 2 or 3V DATE OF EXAM: 01/28/2021 CLINICAL HISTORY: Low back pain for one week. TECHNIQUE: Frontal and lateral images of the lumbar spine are obtained. COMPARISON: CT October 19, 2019. Lumbar spine x-rays July 03, 2020. FINDINGS: Exam is suboptimal due to patient's large body habitus and demineralization which is noted to lower radiographic sensitivity. 5 lumbar type vertebra are redemonstrated. Persistent moderate to severe chronic compression type fracture at L3 level. Persistent gvlu-we-imugvvpu chronic compression type fracture L1 level. Persistent mild to moderate chronic compression fracture T9 level. Alignment stable and satisfactory. Prominent Schmorl node superior L4 endplate. Disc space heights maintained. Atherosclerotic change of the overlying abdominal aorta. New Bilateral common iliac arterial stent g rafts. IMPRESSION: As above.
[2021-01-28 15:54] LABS: Appearance,Urine Clear (Clear); Bilirubin,Urine Negative (Negative); Blood,Urine Negative (Negative); Color,Urine Light Yellow; Glucose,Urine (UA) Negative (Negative); Hyaline Casts,Urine 1 /lpf (0-2); Ketones,Urine Negative (Negative); Leukocyte Esterase,Urine Negative (Negative); Nitrite,Urine Negative (Negative); PH, Urine 7.5 (5.0-8.0); Protein,Urine 1+ (Negative); RBC,Urine 1 /hpf (0-5); Specific Gravity,Urine 1.005 (1.001-1.035); Squamous Epithelial Cell,Urine <1 /hpf (0-4); Urobilinogen,Urine <2.0 mg/dL (<2.0); WBC,Urine 2 /hpf (0-5)
[2021-01-28] MEDS ORDERED: ACET/COD 300 MG/30 MG STARTER PACK 6 TAB BTL PO STA (16:51)
[2021-01-28 17:08] VITALS: BP 157/57; PULSE 76
== END 2021-01-28 17:08 | disposition home or self-care (01) ==
LOC: EC 13:12
DX: M54.5 Low back pain (principal); G89.29 Other chronic pain; I10 Essential (primary) hypertension; E78.5 Hyperlipidemia, unspecified; K21.9 Gastro-esophageal reflux disease without esophagitis; M19.90 Unspecified osteoarthritis, unspecified site; F41.9 Anxiety disorder, unspecified; F17.200 Nicotine dependence, unspecified, uncomplicated; Z86.711 Personal history of pulmonary embolism; Z79.82 Long term (current) use of aspirin
CPT/HCPCS: 72100; 81001; 96372; 99283

== ENCOUNTER → 2021-03-18 | Outpatient (CLI) | payer OTHER, MEDICARE, BC ==
[2021-03-18 10:45] VITALS: BP 136/81; PULSE 45; RESP 18; TEMP 98.6
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
== END ==
LOC: PNWHC3 10:20
PROVIDERS: ATTEND Anesthesiology
DX: M51.34 Other intervertebral disc degeneration, thoracic region (principal); M51.36 Other intervertebral disc degeneration, lumbar region; E78.5 Hyperlipidemia, unspecified; I10 Essential (primary) hypertension; K21.9 Gastro-esophageal reflux disease without esophagitis; F17.200 Nicotine dependence, unspecified, uncomplicated; Z88.6 Allergy status to analgesic agent; Z91.030 Bee allergy status; Z91.048 Other nonmedicinal substance allergy status
CPT/HCPCS: 99211

== ENCOUNTER 2021-04-19 12:41 | Day surgery (SDC) | payer OTHER, MEDICARE, BC ==
[2021-04-16 16:35] VITALS: BMI 21.7
[~2021-04-19 12:41] MED LIST changes: -ALPRAZolam 0.25 MG TAB PO PRN; -ASPIRIN 325 MG TAB PO PRN; +LIDOCAINE 1% (10MG/ML) FOR IV START INTRADERMA PRN; -SODIUM CHLORIDE 0.9% 1,000 ML in EMPTY BAG 1 BAG IV ONE; -ZOLPIDEM 5 MG TAB PO PRN
[2021-04-19 13:21] VITALS: TEMP 98.3
[2021-04-19] MEDS ORDERED: MIDAZOLAM 2 MG/2 ML VIAL ONE (13:37)
[2021-04-19] MEDS ORDERED: methylPREDNISolone ACETATE 40 MG/ML 1 ML VIAL ONE (13:37)
[2021-04-19] MEDS ORDERED: fentaNYL (PF) 50 MCG/ML 2 ML AMP ONE (13:37)
[2021-04-19] MEDS ORDERED: ROPIVACAINE 5MG/ML 20ML VIAL ONE (13:37)
[2021-04-19] MEDS ORDERED: IV FLUID CONTINUATION 1,000 ML IV ONE (14:06)
--- NOTE | 2021-04-19 14:09 | P.PCN ---
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 2- Thoracic degenerative disc disease. 3-compression fractures thoracic and lumbar spine. 4-lumbar spondylosis with lumbar facet arthropathy POSTOPERATIVE DIAGNOSIS: same as pre op diagnosis. PROCEDURE: Diagnostic bilateral T8 ,T9 , T10 medial branch block under fluoroscopy guidance(fluoroscopy images available in the radiology Department ) ( To target the facet joint between T8-9 ,and T9-10 bilaterally ) ANESTHESIA: monitored anesthesia care, as per anesthesia department. EBL: Minimal COMPLICATION: None PROCEDURE INDICATION: Chronic low back pain secondary to Facet arthropathy unresponsive to conservative treatment. PROCEDURE DESCRIPTION: the patient was seen and identified in the preop holding area , risks and benefits and possible complications of the procedure and alternative were discussed with the patient, and the patient agreed to proceed with the procedure and signed the consent and vital signs monitored during the procedure and fluoroscopy was used to maximize the benefit and accuracy of the needle placement, and sedation was given to decrease patient anxiety, patient was taken to the procedure room and placed in prone position vital signs monitored in the back prepped with chlorhexidine X3 then under strict sterile technique using a right oblique fluoroscopy ,the junction of the transverse process and the superior articulating process of the right T8, T9 , and T10 vertebra which corresponding to the fluoroscopy image of the eye of the Juanito dog on the block side for the medial branches and subsequently , after local infiltration of skin and subcu tissuies with Ropivacaine 0.5 % , one mL at each level ,then 22-gauge Quincke-type needles , 3 needle was used , each one of them placed at the junction of the base of the transverse process and the superior articular process at the appropriate level, and the needle was advanced until the periosteum contacted, needle placement confirmed with AP oblique and lateral view and after appropriate needle placement confirmed, and after negative aspiration for heme and CSF and there was no paresthesia 1-1/2 mL of Ropivacaine 0.5% mixed with 20 mg Depo-Medrol , then half mL injected at each level after negative aspiration the needle subsequently removed and the same procedure repeated for the left side at left side at T , T9 and T10 levels. At the end of the procedure and the needles removed and a bandage applied after the skin was cleaned the cleaning solution patient taken to recovery room in stable condition and monitors in the recovery room for 20-30 minutes and discharged home in stable condition after discharge criteria met and patient will follow up with the pain clinic in 2-4 weeks
[2021-04-19 14:11] VITALS: RESP 14
[2021-04-19 14:24] VITALS: BP 123/64; PULSE 74
--- NOTE | 2021-04-19 14:37 | XR ---
EXAMINATION TYPE: XR chest 1V portable DATE OF EXAM: 04/19/2021 COMPARISON: Chest x-ray 01/10/2010 HISTORY: Status post thoracic facet block, pain TECHNIQUE: Single frontal view of the chest is obtained. FINDINGS: There is no focal air space opacity, pleural effusion, or pneumothorax seen. The cardiac silhouette size is within normal limits. The osseous structures are intact, patient is post right s houlder arthroplasty. Dense vascular calcifications are noted incidentally. Prominent lung volume may be indicative of underlying COPD. IMPRESSION: No acute process.
--- NOTE | 2021-04-19 14:50 | FL ---
Fluoroscopy HISTORY: Pain 45 seconds fluoroscopy time supplied to the referring clinician. 4 intraoperative C-arm images docum ent the procedure. See dictated report from anesthesia.
== END 2021-04-19 15:09 ==
LOC: ORPAIN 12:41
PROVIDERS: ATTEND Specialist
DX: G89.29 Other chronic pain (principal); M47.814 Spondylosis without myelopathy or radiculopathy, thoracic region; M51.34 Other intervertebral disc degeneration, thoracic region; M47.816 Spondylosis without myelopathy or radiculopathy, lumbar region; M48.56XA Collapsed vertebra, not elsewhere classified, lumbar region, initial encounter for fracture; M48.54XA Collapsed vertebra, not elsewhere classified, thoracic region, initial encounter for fracture
CPT/HCPCS: 71045; 64490; 64491; J2250; J1030; J3010; J2795

== ENCOUNTER → 2021-05-13 | Outpatient (CLI) | payer OTHER, MEDICARE, BC ==
[2021-05-13 13:49] VITALS: BP 119/71; PULSE 69; RESP 18
--- NOTE | 2021-05-13 14:04 | P.PN ---
Subjective Progress Note Date: 05/13/21 This is an 81-year-old lady with history of mid and lower back pain with no radiation to the lower extremities. The patient received thoracic medial branch block from T8 to 3011 which gave her 100% of pain relief lasting until now. The patient was very happy with the results and she would like us to repeat the same procedure on the lower back area. The patient takes Plavix for history of peripheral vascular disease.. Patient denies new-onset weakness, bowel/bladder incontinence, or any other signs or symptoms of cauda equina syndrome. There are no signs of acute intoxication, and no indications of medication diversion or overuse. In addition to above, 13-point review of systems is also negative for chest pain, shortness of breath, changes in vision, changes in hearing, new onset weakness, abdominal pain, diarrhea, extreme fatigue, malaise, fever, skin cedillo es, homicidal or suicidal ideation, or bowel or bladder incontinence. Vital Signs: Reviewed in EMR Gen: AAOx3, NAD HEENT: PERRLA,hearing grossly normal Pulm: resp unlabored Neck: supple, trachea midline Neuro exam of the lower extremities: Normal muscle strength bilaterally Facet loading test: Positive in the lumbar area Tenderness in the paravertebral musculature: Positive the lumbar area bilaterally Neuro: CN II-XII grossly intact, Imaging: Reviewed in EMR/chart Assessment: Lumbar and thoracic spondylosis without myelopathy Paravertebral structures Myofascial pain Thoracic kyphosis Peripheral vascular disease with treatment with Plavix Plan: 1. Explanation: When patients on opioids, opioid and psychological risk scores were reviewed. Diagnoses, prognoses, and multiple treatment options including but not limited to physical therapy, interventional therapies, adjuvant medical therapies, narcotic medication therapies, and surgery were discussed with the patient and all questions were answered to the patient's satisfaction. 2. Opioid agreement:When patients are prescribed opoids through our clinic, opioid agreement is signed with the patient and the patient is warned not to use opioids while driving or before driving and not to combine opioids with benzodiazepines or alcohol. 3. Counseling: When patient is smoking or obese, the patient was counseled extensively on SMOKING CESSATION, BODY MASS INDEX, EXERCISE. Specifically, the patient was instructed regarding the importance of smoking cessation, obesity, and exercise in the context of both chronic pain and overall health. 4. Procedures: Scheduled for diagnostic lumbar medial branch block for levels 3-4, L4 5, and L5-S1 bilaterally. It is okay to continue treatment with Plavix meanwhile. We'll plan on using a 25-gauge spinal needle for this procedure. 5. Consultations: None 6. Investigations: None 7. Medications: None prescribed 8. Disposition: Proceed with the above-mentioned procedure 9. Maps were reviewed and were appropriate. Objective - Vital Signs Vital signs: Vital Signs Temp Pulse 69 05/13/21 13:43 Resp 18 05/13/21 13:43 BP 119/71 05/13/21 13:43 Pulse Ox 95 05/13/21 13:43
== END ==
LOC: PNWHC3 13:35
PROVIDERS: ATTEND Anesthesiology
DX: M47.816 Spondylosis without myelopathy or radiculopathy, lumbar region (principal); M47.814 Spondylosis without myelopathy or radiculopathy, thoracic region; M79.18 Myalgia, other site; M40.294 Other kyphosis, thoracic region; I73.9 Peripheral vascular disease, unspecified; F17.200 Nicotine dependence, unspecified, uncomplicated; Z79.02 Long term (current) use of antithrombotics/antiplatelets; Z91.013 Allergy to seafood; Z88.6 Allergy status to analgesic agent; Z91.048 Other nonmedicinal substance allergy status
CPT/HCPCS: 99211

== ENCOUNTER 2021-06-21 10:16 | Day surgery (SDC) | payer OTHER, MEDICARE, BC ==
[2021-06-20 11:53] VITALS: BMI 19.0
[~2021-06-21 10:16] MED LIST changes: -LIDOCAINE 1% (10MG/ML) FOR IV START INTRADERMA PRN
[2021-06-21 10:44] VITALS: TEMP 99
[2021-06-21] MEDS ORDERED: LIDOCAINE 1% (10MG/ML) FOR IV START INTRADERMA ONE (10:50)
[2021-06-21] MEDS ORDERED: ROPIVACAINE 5MG/ML 20ML VIAL ONE (11:11)
[2021-06-21] MEDS ORDERED: fentaNYL (PF) 50 MCG/ML 2 ML AMP ONE (11:11)
[2021-06-21] MEDS ORDERED: MIDAZOLAM 2 MG/2 ML VIAL ONE (11:11)
[2021-06-21] MEDS ORDERED: methylPREDNISolone ACETATE 40 MG/ML 1 ML VIAL ONE (11:11)
--- NOTE | 2021-06-21 11:30 | P.PCN ---
Date of Procedure: 06/21/21 Procedure(s) Performed: PREOPERATIVE DIAGNOSIS : 1- Lumbar spondylosis with Facet Arthropathy without myelopathy . 2- Lumber degenerative disc disease POSTOPERATIVE DIAGNOSIS: 1- Lumbar spondylosis with Facet Arthropathy without myelopathy . 2- Lumber degenerative disc disease PROCEDURE: Diagnostic bilateral L3 , L4 , and L5 medial branch block under fluoroscopy guidance(fluoroscopy images available in the radiology Department ) ( To target the facet joint between Bilateral L4-5 , and L5-S1 ) #1st ANESTHESIA:, monitered anesthesia care ,as per anesthesia department.. EBL: Minimal COMPLICATION: None PROCEDURE INDICATION: Chronic low back pain secondary to Facet arthropathy unresponsive to conservative treatment. PROCEDURE DESCRIPTION: the patient was seen and identified in the preop holding area , risks and benefits and possible complications of the procedure and alternative were discussed with the patient, and the patient agreed to proceed with the procedure and signed the consent and vital signs monitored during the procedure and fluoroscopy was used to maximize the benefit and accuracy of the needle placement, and sedation was given to decrease patient anxiety, patient was taken to the procedure room and placed in prone position vital signs monitored in the back prepped with chlorhexidine X3 then under strict sterile technique using a right oblique fluoroscopy ,the junction of the transverse process and the superior articulating process of the right L3 , L4 , and L5 vertebra which corresponding to the fluoroscopy image of the eye of the Juanito dog on the block side for the medial branches and subsequently , after local infiltration of skin and subcu tissuies with Ropivacaine 0.5 % , one mL at each level ,then 25-gauge Quincke-type needles , 3 needle was used , each one of them placed at the junction of the base of the transverse process and the superior articular process at the appropriate level, and the needle was advanced until the periosteum contacted, needle placement confirmed with AP oblique and lateral view and after appropriate needle placement confirmed, and after negative aspiration for heme and CSF and there was no paresthesia 1-1/2 mL of Ropivacaine 0.5% mixed with 20 mg Depo-Medrol , then half mL injected at each level after negative aspiration the needle subsequently removed and the same procedure repeated for the left side at left side at L3 , L4 and L5 levels. At the end of the procedure and the needles removed and a bandage applied after the skin was cleaned the cleaning solution patient taken to recovery room in stable condition and monitors in the recovery room for 20-30 minutes and discharged home in stable condition after discharge criteria met and patient will follow up with the pain clinic in 2-4 weeks
[2021-06-21] MEDS ORDERED: IV FLUID CONTINUATION 1,000 ML IV ONE (11:38)
[2021-06-21 11:48] VITALS: BP 130/86; PULSE 85; RESP 16
--- NOTE | 2021-06-21 13:41 | FL ---
Fluoroscopy INDICATION: Pain FINDINGS: Fluoroscopy time: 7 seconds. Images obtained: 3. IMPRESSIONS: 1. Documentation of fluoroscopy.
== END 2021-06-21 12:32 | disposition home or self-care (01) ==
LOC: ORPAIN 10:16
PROVIDERS: ATTEND Specialist
DX: G89.29 Other chronic pain (principal); M47.816 Spondylosis without myelopathy or radiculopathy, lumbar region; M51.36 Other intervertebral disc degeneration, lumbar region; I10 Essential (primary) hypertension; E78.5 Hyperlipidemia, unspecified; I48.91 Unspecified atrial fibrillation; F17.200 Nicotine dependence, unspecified, uncomplicated; Z86.711 Personal history of pulmonary embolism; K21.9 Gastro-esophageal reflux disease without esophagitis; I99.9 Unspecified disorder of circulatory system; Z95.1 Presence of aortocoronary bypass graft; Z97.2 Presence of dental prosthetic device (complete) (partial); Z79.02 Long term (current) use of antithrombotics/antiplatelets; Z79.891 Long term (current) use of opiate analgesic; Z79.899 Other long term (current) drug therapy; Z98.890 Other specified postprocedural states; Z88.8 Allergy status to other drugs, medicaments and biological substances; Z88.6 Allergy status to analgesic agent; Z91.030 Bee allergy status
CPT/HCPCS: 64493; 64494; J2250; J1030; J3010; J2795; 64495

== ENCOUNTER → 2021-07-04 | Outpatient (CLI) | payer OTHER, MEDICARE, BC ==
[2021-07-04 14:09] VITALS: BP 135/82; PULSE 63; RESP 18
[2021-07-04 14:17] VITALS: TEMP 97.2
--- NOTE | 2021-07-04 14:30 | P.PAINPG ---
Subjective Progress Note Date: 07/04/21 Principal diagnosis: Lumbar back pain Mrs. Chen is a 81 year old pleasant female patient came to [facility] pain management clinic for follow-up, , and postprocedure evaluation for lumbar medial branch injection done on 05/13/2021. Which helped 60 % of pain relief compared to pre procedure. Which helped for 1 weeks duration . With the help of procedure patient can able to perform activities well. But currently she is complaining pain at upper lumbar area, and midthoracic area. As per patient she had 100% pain relief with bilateral thoracic T8-T9, T9-T10 levels done on 04/19/2021. Patient complaining pain in her midthoracic area sta bbing, piercing type of pain. Patient described pain as aching, sharp, throbbing, spasm type of pain. Patient rated pain 7 out of 10 in severity. Which may very her pain level from 4-9 out of 10 in severity. Her low back pain is not radiating to bilateral lower extremities. Pain increases with activities, and standing, walking, sitting, bending forward, and lifting. Pain decreases with pain medications and interventional procedures, and exercises. Overall patient activities- stable . Pain medications, and interventional procedures are helping to some extent. Because of the pain patient is feeling lack of sleep and interest and energy sometimes. Denied any bowel or bladder problems. Patient denies any adverse effects to medications. She is using a wheelchair , walker as a walking aids for walking. Patient denied any suicidal or homicidal ideations intent or plan. At this time patient also denies any auditory or visual hallucinations. There are no signs of narcotic diversion/misuse/overuse and no new-onset weakness, bowel/bladder incontinence, saddle anesthesia, or no red flag symptoms. Objective - Vital Signs Vital signs: General: Well-developed, well-nourished, no acute distress HEENT: Normocephalic, and atraumatic Neck: Supple, no neck swelling Psychiatric: Appropriate mood, and affect [employer]: No focal neurological deficits Musculoskeletal: Upper extremity: Normal strength, and range of motion. Sensation grossly intact Lower extremity: Normal strength, and decreased range of motion secondary to pain Lumbar spine: Paravertebral tenderness: positive Lumbar facet load test : positive Sacroiliac joint tenderness: Negative Lumbar area, and thoracic multiple trigger points positive - Exam 13 point review of symptoms negative except as mentioned in history of present illness. Assessment and Plan Assessment: Lumbar, and thoracic spondylosis without myelopathy Myofascial pain syndrome, and chronic pain syndrome Peripheral vascular disease on Plavix Plan: #1 Diagnoses, prognosis, and multiple treatment options including but not limited to physical therapy, interventional therapy, adjunct medication therapy, narcotic medication, and surgical options were discussed with the patient. And all questions were answered to the patient's satisfaction. #2 treatment plan agreement : Patient was thoroughly discussed regarding the treatment options, alternatives, and importance of exercises as tolerated. Patient clearly understood. #3 Patient was counseled on importance of regular exercise. Including manjit chi, aerobic exercises as tolerated. Which helps for chronic pain, and overall well- being. #4 investigations: MAPS- reviewed , urine drug test- none #5 diagnostic tests: None #6 consultation : None # 7 interventional procedures: Bilateral thoracic T8-T9, T9-T10 medial branch block #2 . Procedure, complications, alternatives discussed with the patient. #8 medications Tylenol 500 mg by mouth every 8 hours as needed, total dose not more than 2 g per day Medication side effects, complications, long-term consequences discussed with the patient. Patient recommended to contact the pain clinic if noticed any issues with given medications. #9 morphine milligrams equivalents dose ( MME) per day: 0 from the pain clinic #10 disposition: scheduled to follow up with pain clinic in 4 weeks duration. Time with Patient: Less than 30 PQRS Measure Charge Sheet Measure #130: Documentation of Current Meds in Medical Chart: Patient's medications documented in chart Measure #226: Tobacco Use: Screen & Cessation Intervention: Pt not a tobacco user Measure #111: Pneumonia Vaccination: Pneumococcal vaccine administered or previously received Measure #47: Advance Care Plan: Advance care planning discussed & documented, plan or surrogate given Measure #412: Opioid Treatment Agreement: No documentation of signed opioid treatment agreement Measure #408: Opioid Therapy Follow-up Evaluation: Patient had NO f/u eval minimum every 3 months during opioid therapy Measure #317: Preventitive Care & Scrn High Bld Press & F/U: Pre-hypertensive or hypertensive BP documented, pt will f/u with PCP Measure #128: Body Mass Index (BMI) Screening & Follow-up: BMI documented within normal parameters Measure #131: Pain Assessment & Follow-up: Pain positive & plan documented Measure #431: Unhealthy Alcohol Use Preventative Care & Scrn: Patient not identified as an unhealthy alcohol user PQRS Narrative: Smoking Status Current every day smoker Hx Alcohol Use (MH) Yes Home Medications: Ambulatory Orders ALPRAZolam [Xanax] 0.25 mg PO BID 01/21/17 Calcium Carbonate [Calcium] 1,200 mg PO QAM 01/21/17 Digoxin [Lanoxin] 125 mcg PO DAILY 01/21/17 Gabapentin [Neurontin] 300 mg PO TID 01/21/17 Pantoprazole Sodium 40 mg PO 1200 01/21/17 Atorvastatin [Lipitor] 80 mg PO HS 08/30/20 Furosemide [Lasix] 40 mg PO DAILY 08/30/20 Ibandronate Sodium [Boniva] 150 mg PO QMONTHLY 08/30/20 Vitamin C/Biotin [Hair, Skin and Nails Chew] 1 tab PO DAILY 08/30/20 ALPRAZolam [Xanax] 0.5 mg PO 1200 10/01/20 Turmeric Root Extract [Turmeric] 500 mg PO DAILY 10/01/20 Clopidogrel [Plavix] 75 mg PO DAILY #90 tab 10/04/20 hydroCHLOROthiazide [Hydrodiuril] 25 mg PO DAILY 03/13/21 oxyCODONE HCL [oxyCODONE HCL (IR)] 30 mg PO BID 03/13/21 Controlled Substance Measures - Controlled Substance Measures Is patient prescribed a controlled substance at discharge?: No
== END ==
LOC: PNWHC3 13:53
DX: M47.816 Spondylosis without myelopathy or radiculopathy, lumbar region (principal); M47.814 Spondylosis without myelopathy or radiculopathy, thoracic region; M79.18 Myalgia, other site; I73.9 Peripheral vascular disease, unspecified; Z79.02 Long term (current) use of antithrombotics/antiplatelets; F17.200 Nicotine dependence, unspecified, uncomplicated
CPT/HCPCS: 99211

== ENCOUNTER 2021-08-22 11:27 | Day surgery (SDC) | payer MEDICARE, BC ==
[2021-08-19 10:49] VITALS: BMI 19.2
[2021-08-22 11:53] VITALS: RESP 16; TEMP 97.3
[2021-08-22] MEDS ORDERED: LIDOCAINE 1% (10MG/ML) FOR IV START INTRADERMA ONE (11:57)
[2021-08-22] MEDS ORDERED: LACTATED RINGERS 1,000 ML IV ONE (11:57)
[2021-08-22] MEDS ORDERED: MIDAZOLAM 2 MG/2 ML VIAL ONE (12:10)
[2021-08-22] MEDS ORDERED: fentaNYL (PF) 50 MCG/ML 2 ML AMP ONE (12:10)
[2021-08-22] MEDS ORDERED: TRIAMCINOLONE ACETONIDE 40 MG/ML 1 ML VIAL ONE (12:10)
[2021-08-22] MEDS ORDERED: ROPIVACAINE 5MG/ML 20ML VIAL ONE (12:10)
--- NOTE | 2021-08-22 12:27 | P.PCN ---
Date of Procedure: 08/22/21 Description of Procedure: Pre- and Post-operative Diagnosis: Lumbar facet arthropathy, and lumbar spondylosis without myelopathy. Procedure: #2 Diagnostic Medial Branch Block at bilateral Lumbar 4/5 and #2 diagnostic dorsal ramus block at Lumbar 5/ sacral ala levels (total 4 levels) Surgeon: Praveena Roy Anesthesia: Local: 1% Lidocaine, IV sedation : Versed 2 mg and fentanyl 100 g. Complications: None EBL: None Specimen removed: None Fluoroscopic image: Saved to patient electronic medical records. Indications for Procedure: The patient is well known to pain clinic for his chronic low back pain management. The lumbar facet loading test was positive with a clinical diagnosis of lumbar facet arthropathy. Failed with conservative therapy. . Came here for interventional help for better pain relief. Patient is scheduled for thoracic medial branch block today but patient had very minimal pain in her thoracic area. Patient requested for lumbar medial branch block which is getting worse at this time. Procedure and Findings: The patient was seen and examined. The written informed consent was obtained after explaining the risks, benefits and alternatives of the procedure to the patient. The patient was brought to the procedure room and was placed in the prone position on the operating table table. A pillow was placed under the abdomen to reduce lumbar lordosis. Standard anesthesia monitoring was done through out the procedure. The skin preparation was done with ChloraPrep X1, and draping was done in usual sterile fashion. Sterile technique was observed throughout the procedure. Under fluoroscopic guidance, right-sided the Lumbar 4, 5 and Sacral ala levels were identified in the AP view. For lumbar L4, and L5 levels the targeting area of superior articular process, and close to the most medial and superior aspect of transverse process identified, marked. 1ml of 1% Lidocaine was used with a 25 gauge needle to achieve adequate local anesthesia of the skin and subcutaneous tissue at each level. A 22 gauge 3.5 inch spinal needle was placed and advanced targeting area which was close to the most medial and superior aspect of the transverse process. For Lumbar 5/ sacral ala level, fluoroscope was used in the anteroposterior view, and the needle tip was placed at the superior and most medial part of sacral ala close to the superior articular process. A bony contact was obtained and needle tip position was confirmed at anteroposterior view. No paresthesia was noted. A negative aspiration was confirmed. 1 ml solution per level was injected, the block solution containing 5 ml of 0.5% ropivacaine preservative-free solution mixed with 40 MG of Kenalog. The needles were removed intact. Entire procedure repeated on the left side. Lumbar area was cleaned and bandages were applied. Disposition : The patient tolerated the procedure very well. The patient was transferred to the recovery room and remained stable until discharged home. The patient was given detailed discharge instructions for infecti a on, bleeding, and increased pain at the injection site, and was advised to seek immediate medical attention should significant side effects develop. The patient will be scheduled with Pain Clinic within 4 weeks.
[2021-08-22] MEDS ORDERED: IV FLUID CONTINUATION 1,000 ML IV ONE (12:30)
[2021-08-22] MEDS ORDERED: LACTATED RINGERS 1,000 ML IV SCH (12:30)
--- NOTE | 2021-08-22 12:37 | FL ---
EXAMINATION TYPE: FL guided pain mgmt statistic DATE OF EXAM: 08/22/2021 FLUOROSCOPY Fluoroscopy time of 3 seconds was used during bilateral lumbar facet block. 2 image/s document/s the procedure.
[2021-08-22 12:54] VITALS: BP 153/73; PULSE 75
[2021-08-22] MEDS ORDERED: ACETAMINOPHEN TAB 325 MG TAB ONE (13:02)
[2021-08-22] MEDS ORDERED: ACETAMINOPHEN TAB 325 MG TAB PO ONE (13:12)
== END 2021-08-22 13:36 | disposition home or self-care (01) ==
LOC: ORPAIN 11:27
DX: G89.29 Other chronic pain (principal); M47.816 Spondylosis without myelopathy or radiculopathy, lumbar region; I10 Essential (primary) hypertension; D64.9 Anemia, unspecified; F41.9 Anxiety disorder, unspecified; Z86.718 Personal history of other venous thrombosis and embolism; Z78.0 Asymptomatic menopausal state; Z98.890 Other specified postprocedural states; Z88.8 Allergy status to other drugs, medicaments and biological substances; Z88.6 Allergy status to analgesic agent; Z91.030 Bee allergy status
CPT/HCPCS: 64490; 64491; J2250; J3301; J3010; J2795; 99152

== ENCOUNTER → 2021-09-30 | Outpatient (CLI) | payer BC, MEDICARE ==
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
[2021-09-30 11:32] VITALS: BP 191/76; PULSE 82; RESP 18; TEMP 98.1
== END ==
LOC: PNWHC3 10:32
PROVIDERS: ATTEND Physician Assistant Medical
DX: G89.29 Other chronic pain (principal); M51.36 Other intervertebral disc degeneration, lumbar region; M47.816 Spondylosis without myelopathy or radiculopathy, lumbar region; F17.200 Nicotine dependence, unspecified, uncomplicated; Z88.6 Allergy status to analgesic agent; Z91.030 Bee allergy status; Z91.09 Other allergy status, other than to drugs and biological substances; Z88.8 Allergy status to other drugs, medicaments and biological substances
CPT/HCPCS: 99211

== ENCOUNTER 2021-11-01 13:03 | Day surgery (SDC) | payer MEDICARE, BC ==
[2021-10-31 09:26] VITALS: BMI 19.2
[~2021-11-01 13:03] MED LIST changes: +LIDOCAINE 1% (10MG/ML) FOR IV START INTRADERMA PRN
[2021-11-01 14:29] VITALS: TEMP 98.2
[2021-11-01] MEDS ORDERED: methylPREDNISolone ACETATE 40 MG/ML 1 ML VIAL ONE (15:06)
[2021-11-01] MEDS ORDERED: ROPIVACAINE 5MG/ML 20ML VIAL ONE (15:06)
[2021-11-01] MEDS ORDERED: MIDAZOLAM 2 MG/2 ML VIAL ONE (15:07)
--- NOTE | 2021-11-01 15:27 | P.PCN ---
Date of Procedure: 11/01/21 Procedure(s) Performed: PREOPERATIVE DIAGNOSIS : 1- Lumbar spondylosis with Facet Arthropathy without myelopathy . 2- Lumber degenerative disc disease POSTOPERATIVE DIAGNOSIS: 1- Lumbar spondylosis with Facet Arthropathy without myelopathy . 2- Lumber degenerative disc disease PROCEDURE: Diagnostic bilateral L3 , L4 , and L5 medial branch block under fluoroscopy guidance(fluoroscopy images available in the radiology Department ) ( To target the facet joint between Bilateral L4-5 , and L5-S1 ) ANESTHESIA:, monitered anesthesia care ,as per anesthesia department.. EBL: Minimal COMPLICATION: None PROCEDURE INDICATION: Chronic low back pain secondary to Facet arthropathy unresponsive to conservative treatment. PROCEDURE DESCRIPTION: the patient was seen and identified in the preop holding area , risks and benefits and possible complications of the procedure and alternative were discussed with the patient, and the patient agreed to proceed with the procedure and signed the consent and vital signs monitored during the procedure and fluoroscopy was used to maximize the benefit and accuracy of the needle placement, and sedation was given to decrease patient anxiety, patient was taken to the procedure room and placed in prone position vital signs monitored in the back prepped with chlorhexidine X3 then under strict sterile technique using a right oblique fluoroscopy ,the junction of the transverse process and the superior articulating process of the right L3 , L4 , and L5 vertebra which corresponding to the fluoroscopy image of the eye of the Juanito dog on the block side for the medial branches and subsequently , after local infiltration of skin and subcu tissuies with Ropivacaine 0.5 % , one mL at each level ,then 22-gauge Quincke-type needles , 3 needle was used , each one of them placed at the junction of the base of the transverse process and the superior articular process at the appropriate level, and the needle was advanced until the periosteum contacted, needle placement confirmed with AP oblique and lateral view and after appropriate needle placement confirmed, and after negative aspiration for heme and CSF and there was no paresthesia 1-1/2 mL of Ropivacaine 0.5% mixed with 20 mg Depo-Medrol , then half mL injected at each level after negative aspiration the needle subsequently removed and the same procedure repeated for the left side at left side at L3 , L4 and L5 levels. At the end of the procedure and the needles removed and a bandage applied after the skin was cleaned the cleaning solution patient taken to recovery room in stable condition and monitors in the recovery room for 20-30 minutes and discharged home in stable condition after discharge criteria met and patient will follow up with the pain clinic in 2-4 weeks
[2021-11-01] MEDS ORDERED: IV FLUID CONTINUATION 700 ML IV ONE (15:34)
--- NOTE | 2021-11-01 15:38 | FL ---
Fluoroscopy History: : LUMBAR PAIN 19 sec fl time used bilateral facets
[2021-11-01 15:45] VITALS: PULSE 82; RESP 16
[2021-11-01 16:58] VITALS: BP 139/94
== END 2021-11-01 16:30 | disposition home or self-care (01) ==
LOC: ORPAIN 13:03
PROVIDERS: ATTEND Specialist
DX: M47.817 Spondylosis without myelopathy or radiculopathy, lumbosacral region (principal)
CPT/HCPCS: 64493; 64494; J2250; J1030; J2795

== ENCOUNTER → 2021-11-14 | Outpatient (CLI) | payer MEDICARE, BC ==
--- NOTE | 2021-11-14 14:06 | P.PN ---
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 Patient states she experienced 100% pain relief status post procedure and is currently pain-free. Pain level is 0 out of 10 in intensity. Denies dull/ achy/ sharp/ shooting pain or any radiation of pain. Pain is provoked by lifting, bending, standing or walking. Pain is alleviated with medications, topicals, injections, alternating ice or heat, physical therapy in the past, home stretching regimen, use of a wheelchair for ambulation, repositioning and rest. Interventional pain procedures completed include FB of the MBB L4-L5, L5-S1 #3 Patient is currently on Tylenol OTC Patient denies any side effects of the medication(s), denies excessive drowsiness or sleepiness, denies suicidal ideation and reports that the current pain medication is helping to control the pain and improve activities of daily living. Patient denies any motor or sensory deficits. Patient denies any fever or night sweats, denies any change in the bowel movements or urination. Physical Examination: -Constitutional: Cooperative. Not in acute distress . -HEENT: Neck is supple. No lymphadenopathy. No thyromegaly. Normal thyroid size. Eyes: No ptosis , no icterus, no photophobia. ENT: No auditory deficits. Normal oropharynx. No Thrush. - Respiratory: Chest clear to auscultations bilaterally. No wheezing. No r honchi. - Cardiovascular: Regular rate and rhythm. S1 / S2 , no S3 , no S4. - Gastrointestinal: Abdomen soft no tenderness. Bowel sounds positive in all four quadrants. No organomegaly. - Genitourinary: Deferred. - Neurologic: Cranial nerve II to XII intact. No focal neurological deficits. - Psychatric: Alert & oriented x 3. Matching mood & appropriate affect. Judgment and insight intact. - Lymphatic: No Lymphadenopathy. - Musculoskeletal: Cervical spine: Muscle bulk/ tone/ strength in the bilateral upper extremities normal. Facet loading test cervical area positive. Lumbar spine: Motor bulk/ tone/ strength lower extremities , thigh and legs : 5/5 Deep tendon reflexes : Normal Knee Jerk. Normal Ankle Jerk . Vertebral body tenderness to palpation over Lumbar Facet Loading Test positive Straight Leg Raise: positive at 30 degrees right side/ left side Gaenslen's Test positive Sacral spine : Severe tenderness over the Sacroiliac joint: right side / left side Range of motion: Flexion of the lumbar spine <60 degrees Range of motion: Extension of the lumbar spine <20 degrees Gaenslen's Test positive Betty test: positive right side / left side Assessment and plan: Chronic low back pain secondary to lumbar degenerative disc disease , lumbar spondylosis with facet arthropathy without myelopathy Recommendation of RFA of the BL L4-L5, L5-S1. Risks, benefits of procedure discussed and pt verbalized understanding. Admits to Plavix use. Denies medical history of diabetes. Protocol on discontinuation/ continuation of medications rogers procedure discussed. Diagnoses, prognosis and treatment options including but not limited to physical therapy, surgical interventions, interventional therapies and medication management including narcotics and adjuvant medication were discussed. All patient questions answered MAPS reviewed and it was appropriate. I have spent 31 minutes on patient care today. Dr Dinh was available by phone for the evaluation of this patient. The time was used to review the medical records including relevant urine studies and Prescription history (MAPs), review of the available imaging, evaluation and examination of the patient, coordination of care with the medical staff and if applicable referring physicians, as well as creation of the medical record PQRS Measure Charge Sheet PQRS Narrative: Smoking Status Current every day smoker Hx Alcohol Use (MH) Yes Home Medications: Ambulatory Orders ALPRAZolam [Xanax] 0.25 mg PO BID 01/21/17 Digoxin [Lanoxin] 125 mcg PO DAILY 01/21/17 Gabapentin [Neurontin] 300 mg PO TID 01/21/17 Pantoprazole Sodium 40 mg PO 1200 01/21/17 Atorvastatin [Lipitor] 80 mg PO HS 08/30/20 Furosemide [Lasix] 40 mg PO Q2D 08/30/20 Vitamin C/Biotin [Hair, Skin and Nails Chew] 1 tab PO DAILY 08/30/20 ALPRAZolam [Xanax] 0.5 mg PO 1200 10/01/20 Turmeric Root Extract [Turmeric] 500 mg PO DAILY 10/01/20 Clopidogrel [Plavix] 75 mg PO DAILY #90 tab 10/04/20 hydroCHLOROthiazide [Hydrodiuril] 25 mg PO DAILY 03/13/21 oxyCODONE-APAP 10-325MG [Percocet 10-325 mg] 1 tab PO QID 08/19/21 Calcium Carbonate/Vitamin D3 [Calcium 600 mg-D3 10 Mcg (400 Iu)] 2 each PO DAILY 09/12/21
[2021-11-14 15:57] VITALS: BP 142/92; PULSE 63; RESP 18; TEMP 98.1
== END ==
LOC: PNWHC3 12:53
PROVIDERS: ATTEND Specialist
DX: M51.36 Other intervertebral disc degeneration, lumbar region (principal); M47.816 Spondylosis without myelopathy or radiculopathy, lumbar region; G89.29 Other chronic pain; F17.200 Nicotine dependence, unspecified, uncomplicated; Z88.6 Allergy status to analgesic agent; Z88.1 Allergy status to other antibiotic agents; Z91.030 Bee allergy status; Z91.09 Other allergy status, other than to drugs and biological substances
CPT/HCPCS: 99211

== ENCOUNTER 2021-12-20 11:06 | Day surgery (SDC) | payer OTHER, MEDICARE, BC ==
[2021-12-19 11:22] VITALS: BMI 19.2
[~2021-12-20 11:06] MED LIST changes: -LIDOCAINE 1% (10MG/ML) FOR IV START INTRADERMA PRN
[2021-12-20 11:36] VITALS: RESP 16; TEMP 98.6
[2021-12-20] MEDS ORDERED: MIDAZOLAM 2 MG/2 ML VIAL ONE (11:51)
[2021-12-20] MEDS ORDERED: LIDOCAINE 2% INJ 20 MG/ML (2 ML VIAL) ONE (11:51)
[2021-12-20] MEDS ORDERED: ROPIVACAINE 5MG/ML 20ML VIAL ONE (11:51)
[2021-12-20] MEDS ORDERED: fentaNYL (PF) 50 MCG/ML 2 ML AMP ONE (11:51)
--- NOTE | 2021-12-20 11:55 | P.PCN ---
Date of Procedure: 12/20/21 Description of Procedure: PREOPERATIVE DIAGNOSIS: Lumbar Facet Arthropathy without myelopathy POSTOPERATIVE DIAGNOSIS: Same PROCEDURES: Bilateral Radiofrequency thermocoagulation of L4-5, L5-S1 medial branches, with fluoroscopic guidance ANESTHESIA: IV sedation with versed and fentanyl and local infiltration with lidocaine 1% 10 ml Imaging: Fluoroscopy was used, images where saved to the medical record PROCEDURE INDICATION: The patient with low back pain secondary to lumbar facet arthropathy who had more than 50% relief of pain with previous diagnostic lumbar medial branch block with local anesthetic. PROCEDURE DESCRIPTION / TECHNIQUE: The patient was seen and identified in the preoperative area. Risks, benefits, complications, including but not limited to risk of infection, bleeding, allergic reactions to the medications and no complete pain relief, and alternatives were discussed with the patient, the patient agreed to proceed with the procedure and signed the consent. IV was started. Vital signs remained stable throughout the procedure. Patient was taken to the OR and time out was completed. The patient was placed in the prone position on the procedure table. The lumber area was prepped and draped in the usual sterile fashion. Vital signs were closely monitored during the procedure. IV sedation was used during the procedure to decrease patient anxiety. Using AP and then oblique fluoroscopy, the eye of the Juanito dog corresponding to the connection between the superior and transverse articular processes of L4, L5, and sacral Ala were identified, marked, and localized with 1% lidocaine. Subsequently, a 20 [id number] radiofrequency cannula with a 10-mm active tip was advanced guided by fluoroscopy to the junction of the pedicle and transverse process of each identified level. Each site then underwent sensory testing at 50 Hz and 0 to 1 volt and motor testing at 2.5 Hz and 0 to 3 volt with local stimulation, no radicular symptoms sensed by the patient and no obvious motor stimulation noted. Thereafter the tested sites underwent radiofrequency thermocoagulation at 80 degrees celsius for 90 seconds after injecting 1 ml of PF lidocaine 1%. Then after the thermocoagulation was done, 1 ml of the block solution containing ropivaciane 0.5% was injected at the lesioned sites after negative aspiration of CSF and blood and with no paresthesias. Cannulas were retracted. At the end of the procedure, the skin was cleansed and bandages were applied. COMPLICATIONS: No acute complications. DISPOSITION / PLANS: The patient was placed in a supine position and transferred to the recovery area in a stable condition for observation and was discharged from the recovery room after meeting discharge criteria. Home discharge instructions given to the patient by the staff. The patient was reexamined prior to discharge. Patient will follow up as directed.
[2021-12-20] MEDS ORDERED: LACTATED RINGERS 1,000 ML IV ONE (12:20)
[2021-12-20] MEDS ORDERED: IV FLUID CONTINUATION 1,000 ML IV ONE (12:20)
[2021-12-20 12:24] VITALS: BP 125/57; PULSE 66
--- NOTE | 2021-12-20 12:34 | FL ---
EXAMINATION TYPE: FL guided pain mgmt statistic DATE OF EXAM: 12/20/2021 CLINICAL HISTORY: Low back pain. TECHNIQUE: Fluoroscopy. COMPARISON: None. FINDINGS: Fluoroscopic guidance was provided during pain relief procedure performed by Dr. Frost. A total of 9 seconds of fluoroscopic time was utilized during the procedure and 6 spot images are acq uired. Images acquired shows needle localization at multiple levels in the lumbar spine. IMPRESSION: As Above.
== END 2021-12-20 13:00 | disposition home or self-care (01) ==
LOC: ORPAIN 11:06
PROVIDERS: ATTEND Hospitalist
DX: M47.816 Spondylosis without myelopathy or radiculopathy, lumbar region (principal); I10 Essential (primary) hypertension; E78.5 Hyperlipidemia, unspecified; I73.9 Peripheral vascular disease, unspecified; Z87.891 Personal history of nicotine dependence; F41.9 Anxiety disorder, unspecified; Z86.711 Personal history of pulmonary embolism; K21.9 Gastro-esophageal reflux disease without esophagitis; Z79.02 Long term (current) use of antithrombotics/antiplatelets; Z79.83 Long term (current) use of bisphosphonates; Z79.899 Other long term (current) drug therapy; Z88.6 Allergy status to analgesic agent; Z88.8 Allergy status to other drugs, medicaments and biological substances
CPT/HCPCS: 64635; 64636; J2250; J3010; J2795; J2001

== ENCOUNTER → 2022-01-22 | Outpatient (CLI) | payer MEDICARE, BC ==
[2022-01-22 13:15] VITALS: BP 142/90; PULSE 82; RESP 18; TEMP 98.5
--- NOTE | 2022-01-22 13:29 | P.PN ---
Subjective Progress Note Date: 01/22/22 Principal diagnosis: A 82 yr old female with caregiver at side with a history of severe and chronic low back pain secondary to lumbar degenerative disc diseases and lumbar spondylosis with facet arthropathy presents today for evaluation status post BL RFA L3-L5. She states she experienced 99% pain relief status post procedure. Pain level is currently at 0 out of 10 in intensity. No radiation of pain. With lifting, patient may feel 1 out of 10 intensity of pain on the left aspect of her lumbar spine. Pain is alleviated with icy hot pain patch and use of a cane for ambulation. Interventional pain procedures completed include BL RFA L3-L5 Patient is currently on icy hot patches Patient denies any side effects of the medication(s), denies excessive drowsiness or sleepiness, denies suicidal ideation and reports that the current pain medication is helping to control the pain and improve activities of daily living. Patient denies any motor or sensory deficits. Patient denies any fever or night sweats, denies any change in the bowel movements or urination. Physical Examination: -Constitutional: Cooperative. Not in acute distress . -HEENT: Neck is supple. No lymphadenopathy. No thyromegaly. Normal thyroid size. Eyes: No ptosis , no icterus, no photophobia. ENT: No auditory deficits. Normal oropharynx. No Thrush. - Respiratory: Chest clear to auscultations bilaterally. No wheezing. No rhonchi. - Cardiovascular: Regular rate and rhythm. S1 / S2 , no S3 , no S4. - Gastrointestinal: Abdomen soft no tenderness. Bowel sounds positive in all four quadrants. No organomegaly. - Genitourinary: Deferred. - Neurologic: Cranial nerve II to XII intact. No focal neurological deficits. - Psychatric: Alert & oriented x 3. Matching mood & appropriate affect. Judgment and insight intact. - Lymphatic: No Lymphadenopathy. - Musculoskeletal: Cervical spine: Muscle bulk/ tone/ strength in the bilateral upper extremities normal Vertebral body tenderness to palpation over Facet loading test positive Thoracic spine Muscle bulk / tone/ strength in the bilateral paraspinal muscles normal Vertebral body tender to palpation over Facet loading test positive Lumbar spine: Motor bulk/ tone/ strength lower extremities , thigh and legs : 5/5 Deep tendon reflexes : Normal Knee Jerk. Normal Ankle Jerk . Vertebral body tenderness to palpation over Lumbar Facet Loading Test positive Straight Leg Raise: positive at 30 degrees right side/ left side Gaenslen's Test positive Sacral spine : Severe tenderness over the Sacroiliac joint: right side / left side Range of motion: Flexion of the lumbar spine <60 degrees Range of motion: Extension of the lumbar spine <20 degrees Gaenslen's Test positive Geovani's Test positive Betty test: positive right side / left side Thigh Thrust Test Sacral Thrust Test Assessment and plan: Chronic low back pain secondary to lumbar degenerative disc disease , lumbar spondylosis with facet arthropathy without myelopathy Patient exhibited optimal and effective pain relief status post procedure. She may return to our clinic on an as-needed basis. All patient questions answered MAPS reviewed and it was appropriate. I have spent 31 minutes on patient care today. Dr Dinh was available by phone for the evaluation of this patient. The time was used to review the medical records including relevant urine studies and Prescription history (MAPs), review of the available imaging, evaluation and examination of the patient, coordination of care with the medical staff and if applicable referring physicians, as well as creation of the medical record Objective - Vital Signs Vital signs: Vital Signs Temp 98.5 F 01/22/22 13:08 Pulse 82 01/22/22 13:08 Resp 18 01/22/22 13:08 BP 142/90 01/22/22 13:08 Pulse Ox 93 L 01/22/22 13:08 FiO2 Intake & Output 01/21/22 01/22/22 01/22/22 18:59 06:59 18:59 Weight 53.977 kg PQRS Measure Charge Sheet Mode of Arrival: Wheelchair PQRS Narrative: Smoking Status Current every day smoker Blood Pressure 142/90 Pain Intensity [Lower Back] 0 Scale Used Numeric (1 - 10) Hx Alcohol Use (MH) Yes Home Medications: Ambulatory Orders ALPRAZolam [Xanax] 0.25 mg PO BID 01/21/17 Digoxin [Lanoxin] 125 mcg PO DAILY 01/21/17 Gabapentin [Neurontin] 300 mg PO TID 01/21/17 Pantoprazole Sodium 40 mg PO 1200 01/21/17 Atorvastatin [Lipitor] 80 mg PO HS 08/30/20 Furosemide [Lasix] 40 mg PO Q2D 08/30/20 Vitamin C/Biotin [Hair, Skin and Nails Chew] 1 tab PO DAILY 08/30/20 ALPRAZolam [Xanax] 0.5 mg PO 1200 10/01/20 Turmeric Root Extract [Turmeric] 500 mg PO DAILY 10/01/20 Clopidogrel [Plavix] 75 mg PO DAILY #90 tab 10/04/20 hydroCHLOROthiazide [Hydrodiuril] 25 mg PO DAILY 03/13/21 oxyCODONE-APAP 10-325MG [Percocet 10-325 mg] 1 tab PO QID 08/19/21 Calcium Carbonate/Vitamin D3 [Calcium 600 mg-D3 10 Mcg (400 Iu)] 2 each PO DAILY 09/12/21 Alendronate Sodium [Fosamax] 70 mg PO SA 12/19/21
== END ==
LOC: PNWHC3 12:52
PROVIDERS: ATTEND Specialist
DX: M51.36 Other intervertebral disc degeneration, lumbar region (principal); M47.816 Spondylosis without myelopathy or radiculopathy, lumbar region; G89.29 Other chronic pain; F17.200 Nicotine dependence, unspecified, uncomplicated; Z88.6 Allergy status to analgesic agent; Z91.030 Bee allergy status; Z88.8 Allergy status to other drugs, medicaments and biological substances
CPT/HCPCS: 99211

== ENCOUNTER → 2022-01-22 | Outpatient (CLI) | payer MEDICARE, BC ==
[2022-01-22 19:00] LABS: African American GFR (CKD) 63.5 (60.0-200.0); Anion Gap 10.8 mmol/L (10.00-18.00); Blood Urea Nitrogen 19.4 mg/dL (9.0-27.0); Carbon Dioxide 27.8 mmol/L (20.0-27.5); Non-African American GFR(CKD) 54.8 (60.0-200.0); Potassium 3.5 mmol/L (3.5-5.5)
[2022-01-22 19:06] LABS: HCT 36.3 % (37.2-46.3); Immature Platelet Fraction 7.8 % (1.1-6.1); MCH 31.3 pg (27.0-32.0); MCHC 33.1 g/dL (32.0-37.0); MCV 94.8 fL (80.0-97.0); Mean Platelet Volume 12.1 fL (9.5-12.2); NRBC Per 100 WBC 0 /100 WBCS (0.0-0.0); Platelet Count 78 X 10*3/uL (140-440); RBC 3.83 X 10*6/uL (4.10-5.20); RDW 14.8 % (11.5-14.5); WBC 3.83 X 10*3/uL (4.50-10.00)
== END | disposition home or self-care (01) ==
LOC: LABPAT 13:38
PROVIDERS: ATTEND Internal Medicine Interventional Cardiology
DX: Z01.812 Encounter for preprocedural laboratory examination (principal); I73.9 Peripheral vascular disease, unspecified
CPT/HCPCS: 80051; 82565; 84520; 85027

== ENCOUNTER 2022-02-19 08:14 | Day surgery (SDC) | payer MEDICARE, BC ==
[~2022-02-19 08:14] MED LIST changes: +ALPRAZolam 0.25 MG TAB PO PRN; -LACTATED RINGERS 1,000 ML IV SCH; +SODIUM CHLORIDE 0.9% 1,000 ML in EMPTY BAG 1 BAG IV ONE
[2022-02-19] MEDS ORDERED: CLOPIDOGREL 75 MG TAB ONE ×2 (08:47→14:31)
[2022-02-19] MEDS ORDERED: ASPIRIN 325 MG TAB ONE (08:47)
[2022-02-19 08:50] LABS: Mean Platelet Volume 9.1
[2022-02-19 10:49] LABS: Platelet Count 89 k/uL (150-450)
[2022-02-19] MEDS ORDERED: HEPARIN SODIUM 1,000 UN/ML (10ML VL) ONE (12:11)
[2022-02-19] MEDS: MIDAZOLAM 2 MG/2 ML VIAL IVP ONE ×2 (12:16→13:10)
[2022-02-19] MEDS ORDERED: LIDOCAINE 1% INJ 10MG/ML (30 ML VIAL-PF) SQ ONE (12:17)
[2022-02-19] MEDS ORDERED: hydrALAZINE HCL 20 MG/ML 1 ML VIAL ONE (12:47)
[2022-02-19] MEDS ORDERED: hydrALAZINE HCL 20 MG/ML 1 ML VIAL IV ONE (12:56)
[2022-02-19] MEDS ORDERED: SODIUM CHLORIDE 0.9% 500 ML 500 ML with niCARdipine 6.25 MG, NITROGLYCERIN-D5W PMX 0.05... IV ONE ×4 (13:06)
[2022-02-19] MEDS ORDERED: MIDAZOLAM 2 MG/2 ML VIAL IV ONE (13:43)
[2022-02-19] MEDS: niCARdipine Syringe (1,000 mcg/10 mL) INTRAARTER ONE ×2 (13:46→14:02)
[2022-02-19] MEDS: NITROGLYCERIN 1000MCG/10ML SYRINGE INTRAARTER ONE ×2 (13:46→14:01)
[2022-02-19] MEDS ORDERED: IOPAMIDOL-250 100ML BTL INTRAARTER ONE (14:25)
[2022-02-19] MEDS ORDERED: CLOPIDOGREL 75 MG TAB PO ONE (14:26)
[2022-02-19] MEDS ORDERED: NALOXONE 0.4 MG/ML 1 ML VIAL IVP PRN (15:08)
[2022-02-19] MEDS ORDERED: SODIUM CHLORIDE 0.9% 1,000 ML in EMPTY BAG 1 BAG IV SCH (15:15)
--- NOTE | 2022-02-19 15:19 | P.PCN ---
Date of Procedure: 02/19/22 Operative Findings: PERCUTANEOUS PERIPHERAL INTERVENTION Performing physician Kamran Feng M.D. Procedure performed #1 Atherectomy of the right popliteal and right anterior tibial artery using the orbital atherectomy device #2 Intravascular ultrasound of the right popliteal in the right anterior tibial artery #3 Successful stenting of the right popliteal using 5.0 x 60 mm self-expandable stent with an excellent angiographic results #4 Successful balloon angioplasty of the right anterior tibial artery #5 Right lower extremity angiogram #6 Ultrasound guided access of the right common femoral artery and right anterior tibial artery Indication This is an 82-year-old female was was critical limb ischemia of the right foot. She is known to have lower extremities peripheral arterial disease Approach Right common femoral artery in the right anterior tibial artery Complications None Level of sedation Moderate with a sedation time of 128 minutes Procedure description After obtaining an informed consent the patient was brought to the cardiac lab asst. The right common femoral artery was cannulated using micropuncture technique under ultrasound guidance and the micropuncture sheath was advanced in antegrade fashion toward the right SFA and subsequently the micropuncture sheath was exchanged over an 035 wire into a 55 cm 6-Danish sheath. At that point anticoagulation was initiated using heparin with continuous ACT monitoring throughout the case After that right lower extremities angiogram was performed and showed diffuse disease in the right SFA with occluded right popliteal and 2 vessels run off below the knee with anterior tibial and peroneal Attempting to crossing the [employer]ENG[employer]ING [employer]PER[employer] from antegrade approach was unsuccessful. I was able to cross the PH[employer]ENGRAVING SUPERVISOR in retrograde technique after I place a slender sheath in the right anterior tibial artery. At that point the sheath was connected into a cocktail containing heparin and verapamil and nitroglycerin. Subsequently I was able to cross the [employer]ENGRAVING SUPERVISOR in retrograde technique and the wire was advanced to the right SFA. Then after that I advanced an 018 catheter over the wire and I injected contrast in the right SFA to prove that I was in the true lumen. Intravascular ultrasound was performed and showed a diameter of the right popliteal about 4 mm and about 3 mm for the anterior tibial artery After that I did balloon angioplasty using a chocolate balloon at 4 mm. The following angiogram showed adequate angiographic results for the right anterior tibial artery and in inadequate angiographic results for the popliteal artery. Because of that I decided to stent the right popliteal below the knee were I stented that using 5.0 x 60 mm self-expandable stent where the stent was positioned under fluoroscopy guidance and deployed under fluoroscopy guidance. The following angiogram showed good angiographic results with good flow. The procedure was completed without any complication Postprocedure management #1 dual antiplatelet therapy #2 aggressive cholesterol control #3 risk factors modification #4 follow-up with the patient
--- NOTE | 2022-02-19 16:05 | IR ---
EXAMINATION TYPE: IR stent intravas non coronary DATE OF EXAM: 02/19/2022 COMPARISON: NONE HISTORY: Fluoroscopy time. Fluoroscopy was provided to the referring clinician.
[2022-02-19] MEDS ORDERED: HYDROmorphone 0.5 MG/0.5 ML SYRINGE IVP STA (16:50)
[2022-02-19] MEDS: oxyCODONE-APAP 10-325MG 1 EACH TAB PO SCH ×2 (18:37→23:08)
[2022-02-19] MEDS: GABAPENTIN 300 MG CAP PO SCH ×2 (18:38→23:09)
[2022-02-19] MEDS ORDERED: ATORVASTATIN 80 MG TAB PO SCH ×2 (21:00)
[2022-02-19] MEDS: ALPRAZolam 0.25 MG TAB PO SCH (21:20)
[2022-02-19] MEDS ORDERED: ONDANSETRON 4 MG/2 ML VIAL IVP PRN (23:40)
[2022-02-19] MEDS ORDERED: oxyCODONE-APAP 10-325MG 1 EACH TAB PO SCH (23:45)
[2022-02-19] MEDS ORDERED: oxyCODONE-APAP 10-325MG 1 EACH TAB PO PRN (23:48)
[2022-02-20 00:16] LABS: Glucose,Whole Blood 104 mg/dL (70-110)
--- NOTE | 2022-02-20 08:10 | P.DS ---
Providers Attending physician: Kamran Feng Primary care physician: Emily Shook MD Hospital Course: The patient is an 82-year-old female patient who underwent yesterday successful recanalizing chronically occluded right popliteal and right anterior tibial artery. The procedure was performed from the right groin in antegrade ipsilateral technique. The right groin is soft and nontender and with no bruises. She has a Doppler signal in the right anterior tibial artery. The patient is going to be discharged home on dual antiplatelet therapy and he'll follow-up with the patient in a week Plan - Discharge Summary Discharge Rx Participant: Yes New Discharge Prescriptions: New Aspirin 325 mg PO DAILY #90 tab Continue Pantoprazole Sodium 40 mg PO 1200 Gabapentin [Neurontin] 300 mg PO TID Digoxin [Lanoxin] 125 mcg PO DAILY ALPRAZolam [Xanax] 0.25 mg PO BID Atorvastatin [Lipitor] 80 mg PO HS Vitamin C/Biotin [Hair, Skin and Nails Chew] 1 tab PO DAILY Furosemide [Lasix] 40 mg PO Q2D ALPRAZolam [Xanax] 0.5 mg PO 1200 Turmeric Root Extract [Turmeric] 500 mg PO DAILY hydroCHLOROthiazide [Hydrodiuril] 25 mg PO DAILY oxyCODONE-APAP 10-325MG [Percocet 10-325 mg] 1 tab PO QID Calcium Carbonate/Vitamin D3 [Calcium 600 mg-D3 10 Mcg (400 Iu)] 2 each PO DAILY Alendronate Sodium [Fosamax] 70 mg PO SA Clopidogrel [Plavix] 75 mg PO 1200 Discharge Medication List ALPRAZolam [Xanax] 0.25 mg PO BID 01/21/17 [History] Digoxin [Lanoxin] 125 mcg PO DAILY 01/21/17 [History] Gabapentin [Neurontin] 300 mg PO TID 01/21/17 [History] Pantoprazole Sodium 40 mg PO 1200 01/21/17 [History] Atorvastatin [Lipitor] 80 mg PO HS 08/30/20 [History] Furosemide [Lasix] 40 mg PO Q2D 08/30/20 [History] Vitamin C/Biotin [Hair, Skin and Nails Chew] 1 tab PO DAILY 08/30/20 [History] ALPRAZolam [Xanax] 0.5 mg PO 1200 10/01/20 [History] Turmeric Root Extract [Turmeric] 500 mg PO DAILY 10/01/20 [History] hydroCHLOROthiazide [Hydrodiuril] 25 mg PO DAILY 03/13/21 [History] oxyCODONE-APAP 10-325MG [Percocet 10-325 mg] 1 tab PO QID 08/19/21 [History] Calcium Carbonate/Vitamin D3 [Calcium 600 mg-D3 10 Mcg (400 Iu)] 2 each PO DAILY 09/12/21 [History] Alendronate Sodium [Fosamax] 70 mg PO SA 12/19/21 [History] Clopidogrel [Plavix] 75 mg PO 1200 02/18/22 [History] Aspirin 325 mg PO DAILY #90 tab 02/20/22 [Rx] Follow up Appointment(s)/Referral(s): Kamran Feng MD [STAFF PHYSICIAN] - 1 Week
[2022-02-20 08:41] VITALS: BP 181/71; PULSE 89; RESP 18; TEMP 98.2
[2022-02-20] MEDS: GABAPENTIN 300 MG CAP PO SCH (08:42)
[2022-02-20] MEDS: ALPRAZolam 0.25 MG TAB PO SCH (08:42)
[2022-02-20 08:43] LABS: African American GFR (CKD) >90 (>60 ml/min/1.73 sqM); Non-African American GFR(CKD) 84 (>60 ml/min/1.73 sqM)
[2022-02-20] MEDS ORDERED: NON FORMULARY DRUG (Turmeric Root Extract [Turmeric] 500 MG Capsule) PO SCH (09:00)
[2022-02-20] MEDS ORDERED: hydroCHLOROthiazide 25 MG TAB PO SCH (09:00)
[2022-02-20] MEDS ORDERED: ASCORBIC ACID 500 MG TAB PO SCH (09:00)
[2022-02-20] MEDS ORDERED: CALCIUM CARB-VIT D 500 MG-5 MCG TAB PO SCH (09:00)
[2022-02-20] MEDS ORDERED: DIGOXIN 125 MCG TAB PO SCH (09:00)
[2022-02-20] MEDS ORDERED: PANTOPRAZOLE 40 MG TABLET PO SCH (12:00)
[2022-02-20] MEDS ORDERED: CLOPIDOGREL 75 MG TAB PO SCH (12:00)
[2022-02-21] MEDS ORDERED: FUROSEMIDE 40 MG TAB PO SCH (09:00)
[2022-02-22] MEDS ORDERED: PATIENT'S OWN (Alendronate Sodium [Fosamax] 70 MG Tablet) PO SCH (07:00)
== END 2022-02-20 13:10 | disposition home or self-care (01) ==
LOC: CATHCVL 08:14 → 3SCARD 14:25 → CATHCVL 02-20 13:10
PROVIDERS: ATTEND Internal Medicine Interventional Cardiology
DX: I70.235 Atherosclerosis of native arteries of right leg with ulceration of other part of foot (principal); L97.519 Non-pressure chronic ulcer of other part of right foot with unspecified severity; E78.5 Hyperlipidemia, unspecified; I10 Essential (primary) hypertension; Z20.822 Contact with and (suspected) exposure to COVID-19; G89.29 Other chronic pain; M54.50 Low back pain, unspecified; F17.210 Nicotine dependence, cigarettes, uncomplicated; E78.00 Pure hypercholesterolemia, unspecified; Z79.899 Other long term (current) drug therapy
CPT/HCPCS: 37227; 37229; 75710; 37252; 37253; 82565; 85049; 87635; C1894 ×3; C1769 ×7; C1714; C1887; C1876; C2623; C1725; J1644 ×2; J2250; J0360; J2405; J2001; J1170; Q9966

== ENCOUNTER → 2022-06-11 | Outpatient (CLI) | payer OTHER, MEDICARE, BC ==
[2022-06-11 14:12] VITALS: BP 135/77; PULSE 80; RESP 16
--- NOTE | 2022-06-11 14:46 | P.PAINPG ---
PQRS Measure Charge Sheet Comment: A 82 yr old female w caregiver at side with a history of severe and chronic low back pain secondary to lumbar degenerative disc diseases and lumbar spondylosis with facet arthropathy without myelopathy presents today for LBP. Pt experienced 5mo of pain relief w prior RFA procedure. Pain level is currently at 10 /10 in intensity w palpation or standing/ walking for periods of 15 min or more, constant, localized in the lower lumbar spine, sharp in character w shooting towards the BLEs. Pain is alleviated with medications, use of a wheelchair for ambulation, repositioning and rest. Interventional pain procedures completed include BL RFA L3-L5 Patient is currently on Percocet, Neurontin, Xanax Patient denies any side effects of the medication(s), denies excessive drowsiness or sleepiness, denies suicidal ideation and reports that the current pain medication is helping to control the pain and improve activities of daily living. Patient denies any motor or sensory deficits. Patient denies any fever or night sweats, denies any change in the bowel movements or urination. Physical Examination: -Constitutional: Cooperative. Not in acute distress . - Neurologic: Cranial nerve II to XII intact. No focal neurological deficits. - Psychatric: Alert & oriented x 3. Matching mood & appropriate affect. Judgment and insight intact. - Musculoskeletal: Cervical spine: Muscle bulk/ tone/ strength in the bilateral upper extremities normal Vertebral body tenderness to palpation over Spurling test positive Distraction test positive Facet loading test positive Thoracic spine Muscle bulk / tone/ strength in the bilateral paraspinal muscles normal Vertebral body tender to palpation over Facet loading test positive Lumbar spine: Motor bulk/ tone/ strength lower extremities , thigh and legs : 5/5 Deep tendon reflexes : Normal Knee Jerk. Normal Ankle Jerk . Vertebral body tenderness to palpation over Lumbar Facet Loading Test positive w jump reflex over BL L4-L5, L5-S1 Straight Leg Raise: positive at 30 degrees right side/ left side Gaenslen's Test positive Sacral spine : Severe tenderness over the Sacroiliac joint: right side / left side Range of motion: Flexion of the lumbar spine <60 degrees Range of motion: Extension of the lumbar spine <20 degrees Gaenslen's Test positive Geovani's Test positive Betty test: positive right side / left side Thigh Thrust Test Sacral Thrust Test Assessment and plan: Chronic low back pain secondary to lumbar degenerative disc disease , lumbar spondylosis with facet arthropathy without myelopathy Recommendation of BL RFA L4-L5, L5-S1. Pt exhibited sufficient and satisfactory pain relief w prior procedure. Risks, benefits of procedure discussed and pt verbalized understanding. Admits to anticoagulant use or medical history of diabetes. Protocol for discontinuation/ continuation of medications rogers procedure discussed. All patient questions answered I have spent less than 30 minutes on patient care today. Dr Dinh was available by phone for the evaluation of this patient. The time was used to review the medical records including relevant urine studies and Prescription history (MAPs), review of the available imaging, evaluation and examination of the patient, coordination of care with the medical staff and if applicable referring physicians, as well as creation of the medical record PQRS Narrative: Smoking Status Current every day smoker Hx Alcohol Use (MH) Yes Home Medications: Ambulatory Orders ALPRAZolam [Xanax] 0.25 mg PO BID 01/21/17 Digoxin [Lanoxin] 125 mcg PO DAILY 01/21/17 Gabapentin [Neurontin] 300 mg PO TID 01/21/17 Pantoprazole Sodium 40 mg PO 1200 01/21/17 Atorvastatin [Lipitor] 80 mg PO HS 08/30/20 Furosemide [Lasix] 40 mg PO Q2D 08/30/20 Vitamin C/Biotin [Hair, Skin and Nails Chew] 1 tab PO DAILY 08/30/20 ALPRAZolam [Xanax] 0.5 mg PO 1200 10/01/20 Turmeric Root Extract [Turmeric] 500 mg PO DAILY 10/01/20 hydroCHLOROthiazide [Hydrodiuril] 25 mg PO DAILY 03/13/21 oxyCODONE-APAP 10-325MG [Percocet 10-325 mg] 1 tab PO QID 08/19/21 Calcium Carbonate/Vitamin D3 [Calcium 600 mg-D3 10 Mcg (400 Iu)] 2 each PO DAILY 09/12/21 Alendronate Sodium [Fosamax] 70 mg PO SA 12/19/21 Clopidogrel [Plavix] 75 mg PO 1200 02/18/22 Aspirin 325 mg PO DAILY #90 tab 02/20/22 Controlled Substance Measures - Controlled Substance Measures Is patient prescribed a controlled substance at discharge?: No
== END ==
LOC: PNWHC3 13:41
PROVIDERS: ATTEND Specialist
DX: M51.26 Other intervertebral disc displacement, lumbar region (principal); M47.816 Spondylosis without myelopathy or radiculopathy, lumbar region; Z88.5 Allergy status to narcotic agent; F17.200 Nicotine dependence, unspecified, uncomplicated; Z91.030 Bee allergy status; Z88.8 Allergy status to other drugs, medicaments and biological substances; Z91.048 Other nonmedicinal substance allergy status; G89.29 Other chronic pain; F10.90 Alcohol use, unspecified, uncomplicated
CPT/HCPCS: 99211

== ENCOUNTER 2022-07-22 12:29 | Day surgery (SDC) | payer OTHER, MEDICARE, BC ==
[2022-07-22] MEDS ORDERED: LACTATED RINGERS 1,000 ML IV ONE ×2 (13:22)
[2022-07-22 13:24] VITALS: TEMP 98.3
[2022-07-22] MEDS ORDERED: methylPREDNISolone ACETATE 40 MG/ML 1 ML VIAL ONE (13:38)
[2022-07-22] MEDS ORDERED: ROPIVACAINE 5 MG/ML 20 ML AMPULE ONE (13:38)
[2022-07-22] MEDS ORDERED: MIDAZOLAM 2 MG/2 ML VIAL ONE (13:38)
[2022-07-22] MEDS ORDERED: fentaNYL (PF) 50 MCG/ML 2 ML AMP ONE (13:38)
--- NOTE | 2022-07-22 14:09 | P.PCN ---
Date of Procedure: 07/22/22 Procedure(s) Performed: PREOPERATIVE DIAGNOSIS: 1-Lumbar Spondylosis with Facet Arthropathy without myelopathy. 2- Lumber degenerative disc disease. POSTOPERATIVE DIAGNOSIS: 1- Lumbar Spondylosis with Facet Arthropathy without myelopathy. 2- Lumber degenerative disc disease. PROCEDURES : Bilateral Radiofrequency thermocoagulation, L3 , L4 , and L5 medial branch, with fluoroscopic guidance (fluoroscopy images available in the radiology department) ( to denervate the facet joint at bilateral L4-5 ,and L5-S1 levels ). ANESTHESIA: Moderate sedation with intravenous versed 2 mg and fentaneyl 100 mcg, and local infiltration with Ropivacaine 0.5 % . Sedation the start time 1343. And 1406 EBL: Minimal PROCEDURE INDICATION: The patient with low back pain secondary to lumbar facet arthropathy who had more than 50% relief of her pain with previous diagnostic lumbar medial branch block with bupivacaine. PROCEDURE DESCRIPTION / TECHNIQUE: The patient was seen and identified in the preoperative area. Risks, benefits, complications, including but not limited to risk of infection ,bleeding , allergic reactions to the medications and no complete pain releife , and alternatives were discussed with the patient, the patient agreed to proceed with the procedure and signed the consent. IV was started. Vital signs remained stable throughout the procedure. Patient was taken to the OR and time out was completed. The patient was placed in the prone position on the procedure table. The lumber area was prepped and draped in the usual sterile fashion. . Vital signs were closely monitored during the procedure .IV sedation was used during the procedure to decrease patients anxiety. Using AP and then oblique fluoroscopy, the ``eye of the Juanito dog corresponding to the connection between the superior and transverse articular processes of right L3, L4, and L5 were identified, marked, and localized with 1% lidocaine. Subsequently, a [id number] radiofrequency cannula with a 10- mm active tip was advanced guided by fluoroscopy to each of the``eyes of the Juanito dog at right L3, L4, and L5. Each site then underwent sensory testing at 50 Hz and 0 to 1 volt and motor testing at 2.5 Hz and 0 to 3 volt with local stimulation, but no radicular symptoms down the legs. Thereafter each sites underwent radiofrequency thermocoagulation at 80 degrees celsius for 90 seconds after injecting 0.5 ml of PF Ropivacaine 1ml, then after the thermocoagulation done , 1 ml of the block solution containing Depo-Medrol 20 mg and 3 ml of Ropivacaine 0.5% was injected at the right L3 , L4 , and L5 , levels after negative aspiration of CSF and blood and with no paresthesias. Cannulas were retracted while injecting lidocaine 1% until the needle is out. The same procedure was repeated at the level of Left L3, L4, and L5 levels. At the end of the procedure, the skin was cleansed and bandages were applied. COMPLICATIONS: No acute complications. DISPOSITION / PLANS: The patient was placed in a supine position and tr ansferred to the recovery area in a stable condition for observation and was discharged from the recovery room after meeting discharge criteria. Home discharge instructions given to the patient by the staff. The patient was reexamined prior to discharge. The patient will schedule a follow up in the clinic in 2-4 weeks.
[2022-07-22] MEDS ORDERED: IV FLUID CONTINUATION 400 ML IV ONE (14:14)
[2022-07-22 14:18] VITALS: RESP 16
--- NOTE | 2022-07-22 14:30 | FL ---
Fluoroscopy INDICATION: Pain FINDINGS: Fluoroscopy time: 29 seconds. Images obtained: 6. IMPRESSIONS: 1. Documentation of fluoroscopy.
[2022-07-22 14:35] VITALS: BP 142/58; PULSE 72
== END 2022-07-22 15:04 | disposition home or self-care (01) ==
LOC: ORPAIN 12:29
PROVIDERS: ATTEND Specialist
DX: M47.816 Spondylosis without myelopathy or radiculopathy, lumbar region (principal); M12.88 Other specific arthropathies, not elsewhere classified, other specified site; M51.36 Other intervertebral disc degeneration, lumbar region; I25.10 Atherosclerotic heart disease of native coronary artery without angina pectoris; Z79.02 Long term (current) use of antithrombotics/antiplatelets
CPT/HCPCS: 64635; 64636; J2250; J1030; J3010; J2795; 99152; 99153

== ENCOUNTER → 2022-08-07 | Outpatient (CLI) | payer OTHER, MEDICARE, BC ==
[2022-08-07 14:40] VITALS: BP 157/91; PULSE 86; RESP 18; TEMP 98.4
--- NOTE | 2022-08-07 14:42 | P.PAINPG ---
PQRS Measure Charge Sheet Comment: A 82 yr old female w caregiver at side with a history of severe and chronic low back pain secondary to lumbar DDD and spondylosis with facet arthropathy without myelopathy presents today for evaluation s/p BL RFA L3-L5. Pt states she experienced 75 % pain relief s/p procedure. Pain level is currently at 5/10 in intensity, constant, localized in the paraspinal muscles L & R of midline, sore in character without radiation. Pain is provoked by bending, lifting. Pain is alleviated with medications, icy hot patches, injections, ice, physical therapy which has been ineffective, use of a cane for ambulation, repositioning and rest. Interventional pain procedures completed include BL RFA L3-L5 Patient is currently on Percocet Patient denies any side effects of the medication(s), denies excessive drowsiness or sleepiness, denies suicidal ideation and reports that the current pain medication is helping to control the pain and improve activities of daily living. Patient denies any motor or sensory deficits. Patient denies any fever or night sweats, denies any change in the bowel movements or urination. Physical Examination: -Constitutional: Cooperative. Not in acute distress . - Neurologic: Cranial nerve II to XII intact. No focal neurological deficits. - Psychatric: Alert & oriented x 3. Matching mood & appropriate affect. Judgment and insight intact. - Musculoskeletal: Cervical spine: Muscle bulk/ tone/ strength in the bilateral upper extremities normal Vertebral body tenderness to palpation over Spurling test positive Distraction test positive Facet loading test positive Thoracic spine Muscle bulk / tone/ strength in the bilateral paraspinal muscles normal Vertebral body tender to palpation over Facet loading test positive Lumbar spine: Motor bulk/ tone/ strength lower extremities , thigh and legs : 5/5 Deep tendon reflexes : Normal Knee Jerk. Normal Ankle Jerk . Vertebral body tenderness to palpation over BL L2-L5 paraspinal TTP w palpable spasms Lumbar Facet Loading Test positive Straight Leg Raise: positive at 30 degrees right side/ left side Gaenslen's Test positive Sacral spine : Severe tenderness over the Sacroiliac joint: right side / left side Range of motion: Flexion of the lumbar spine <60 degrees Range of motion: Extension of the lumbar spine <20 degrees Gaenslen's Test positive Betty test: positive right side / left side Thigh Thrust Test Sacral Thrust Test Assessment and plan: Chronic low back pain secondary to lumbar degenerative disc disease, spondylosis with facet arthropathy without myelopathy Exhibited sufficient pain relief w prior RFA procedure. For muscle aches, Robaxin prescribed. All patient questions answered Prescription for Robaxin 500mg #60 w 1 RF I have spent less than 30 minutes on patient care today. Dr Dinh was available by phone for the evaluation of this patient. The time was used to review the medical records including relevant urine studies and Prescription history (MAPs), review of the available imaging, evaluation and examination of the patient, coordination of care with the medical staff and [facility], as well as creation of the medical record PQRS Narrative: Smoking Status Current every day smoker Hx Alcohol Use (MH) Yes Home Medications: Ambulatory Orders ALPRAZolam [Xanax] 0.25 mg PO BID 01/21/17 Digoxin [Lanoxin] 125 mcg PO DAILY 01/21/17 Gabapentin [Neurontin] 300 mg PO TID 01/21/17 Pantoprazole Sodium 40 mg PO 1200 01/21/17 Atorvastatin [Lipitor] 80 mg PO HS 08/30/20 Furosemide [Lasix] 40 mg PO Q2D 08/30/20 Vitamin C/Biotin [Hair, Skin and Nails Chew] 1 tab PO DAILY 08/30/20 ALPRAZolam [Xanax] 0.5 mg PO 1200 10/01/20 Turmeric Root Extract [Turmeric] 500 mg PO DAILY 10/01/20 hydroCHLOROthiazide [Hydrodiuril] 25 mg PO DAILY 03/13/21 oxyCODONE-APAP 10-325MG [Percocet 10-325 mg] 1 tab PO QID 08/19/21 Calcium Carbonate/Vitamin D3 [Calcium 600 mg-D3 10 Mcg (400 Iu)] 2 each PO DAILY 09/12/21 Alendronate Sodium [Fosamax] 70 mg PO SA 12/19/21 Clopidogrel [Plavix] 75 mg PO 1200 02/18/22 Aspirin 81 mg PO BID 07/21/22 Controlled Substance Measures - Controlled Substance Measures Is patient prescribed a controlled substance at discharge?: No
== END ==
LOC: PNWHC3 13:48
PROVIDERS: ATTEND Specialist
DX: M47.816 Spondylosis without myelopathy or radiculopathy, lumbar region (principal); M51.36 Other intervertebral disc degeneration, lumbar region; F17.200 Nicotine dependence, unspecified, uncomplicated; Z88.6 Allergy status to analgesic agent; Z91.030 Bee allergy status; Z91.09 Other allergy status, other than to drugs and biological substances; Z88.8 Allergy status to other drugs, medicaments and biological substances
CPT/HCPCS: 99211

== ENCOUNTER 2022-11-05 14:48 | Emergency (ER) | payer MEDICARE, BC ==
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
--- NOTE | 2022-11-05 16:28 | XR ---
EXAMINATION TYPE: XR foot complete RT DATE OF EXAM: 11/05/2022 CLINICAL HISTORY: Pain and redness and swelling after injury one week ago TECHNIQUE: Frontal, lateral, and oblique images of the right foot are obtained. COMPARISON: None FINDINGS: Osseous structures are demineralized which is noted from a radiographic sensitivity for ev aluation of fine anatomic detail. There is no acute displaced fracture evident in the right foot. No suspicious bony destruction is seen. The joint spaces in the right foot appear within normal limits. The overlying soft tissue appears unremarkable. IMPRESSION: As above.
[2022-11-05 16:53] LABS: Anisocytosis Slight; Basophils % (A) 1 %; Eosinophils # (A) 0.1 k/uL (0-0.7); Eosinophils % (A) 1 %; HCT 32.6 % (34.0-46.0); HGB 10.2 gm/dL (11.4-16.0); Hypochromasia Moderate; Lymphocytes % (A) 20 %; MCH 29.5 pg (25.0-35.0); MCHC 31.2 g/dL (31.0-37.0); MCV 94.5 fL (80.0-100.0); Mean Platelet Volume 9.1; Monocytes # (A) 0.5 k/uL (0-1.0); Monocytes % (A) 11 %; Neutrophils # (A) 3.2 k/uL (1.3-7.7); Neutrophils % (A) 64 %; Platelet Count 105 k/uL (150-450); RBC 3.46 m/uL (3.80-5.40); RDW 17.1 % (11.5-15.5)
[2022-11-05 17:09] LABS: C Reactive Protein 2.1 mg/dL (<1.0); Calcium 8.8 mg/dL (8.4-10.2); Potassium 4.3 mmol/L (3.5-5.1)
[2022-11-05 18:04] LABS: Erythrocyte Sedimentation Rate 22 mm/hr (0-20)
[2022-11-05 18:14] VITALS: BP 125/88; PULSE 90; RESP 16; TEMP 98.1
[2022-11-05] MEDS ORDERED: CEPHALEXIN 500 MG CAP PO STA (18:22)
== END 2022-11-05 18:41 | disposition home or self-care (01) ==
LOC: EC 14:48
DX: L03.115 Cellulitis of right lower limb (principal); I10 Essential (primary) hypertension; E78.5 Hyperlipidemia, unspecified; K21.9 Gastro-esophageal reflux disease without esophagitis; F41.9 Anxiety disorder, unspecified; Z79.82 Long term (current) use of aspirin; Z79.899 Other long term (current) drug therapy; Z87.891 Personal history of nicotine dependence; Z91.030 Bee allergy status; Z88.8 Allergy status to other drugs, medicaments and biological substances
CPT/HCPCS: 36415; 80048; 85025; 85652; 86140; 99283

== ENCOUNTER → 2022-11-05 | Outpatient (CLI) | payer MEDICARE, BC ==
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
== END | disposition home or self-care (01) ==
LOC: RADNMMAIN 10:28
PROVIDERS: ATTEND Orthopaedic Surgery Orthopaedic Surgery of the Spine
DX: S32.030D Wedge compression fracture of third lumbar vertebra, subsequent encounter for fracture with routine healing (principal); S32.040D Wedge compression fracture of fourth lumbar vertebra, subsequent encounter for fracture with routine healing; S32.010D Wedge compression fracture of first lumbar vertebra, subsequent encounter for fracture with routine healing
CPT/HCPCS: 78306; A9503

== ENCOUNTER 2022-11-20 13:41 | Emergency (ER) | payer MEDICARE, BC ==
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
[2022-11-20 16:33] LABS: Anisocytosis Slight; Basophils % (A) 1 %; Eosinophils % (A) 0 %; HCT 32.1 % (34.0-46.0); HGB 10.4 gm/dL (11.4-16.0); Hypochromasia Slight; Lymphocytes # (A) 0.7 k/uL (1.0-4.8); Lymphocytes % (A) 16 %; MCH 29.8 pg (25.0-35.0); MCHC 32.4 g/dL (31.0-37.0); MCV 92.2 fL (80.0-100.0); Mean Platelet Volume 9.3; Monocytes # (A) 0.4 k/uL (0-1.0); Monocytes % (A) 9 %; Neutrophils # (A) 3.2 k/uL (1.3-7.7); Neutrophils % (A) 71 %; Platelet Count 121 k/uL (150-450); RBC 3.49 m/uL (3.80-5.40); RDW 16.7 % (11.5-15.5); WBC 4.5 k/uL (3.8-10.6)
[2022-11-20 16:44] LABS: Partial Thromboplastin Time 25.9 sec (22.0-30.0)
[2022-11-20 16:48] LABS: Albumin 4.5 g/dL (3.5-5.0); Calcium 9.5 mg/dL (8.4-10.2); Potassium 3.7 mmol/L (3.5-5.1); Total Bilirubin 1.1 mg/dL (0.2-1.3); Total Protein 8.4 g/dL (6.3-8.2)
[2022-11-20 19:24] VITALS: BP 167/90; PULSE 93; RESP 16; TEMP 98.2
== END 2022-11-20 19:25 | disposition home or self-care (01) ==
LOC: EC 13:41
DX: E87.1 Hypo-osmolality and hyponatremia (principal); E78.5 Hyperlipidemia, unspecified; K21.9 Gastro-esophageal reflux disease without esophagitis; I10 Essential (primary) hypertension; M19.90 Unspecified osteoarthritis, unspecified site; F41.9 Anxiety disorder, unspecified; Z87.891 Personal history of nicotine dependence; Z91.030 Bee allergy status; Z91.048 Other nonmedicinal substance allergy status; Z88.8 Allergy status to other drugs, medicaments and biological substances; Z79.82 Long term (current) use of aspirin; Z79.899 Other long term (current) drug therapy
CPT/HCPCS: 36415; 80053; 82272; 83605; 84484; 85025; 85610; 85730; 86850; 86900; 86901; 99284

== ENCOUNTER 2022-12-06 11:05 | Emergency (ER) | payer OTHER, MEDICARE, BC ==
[2022-12-06 11:17] VITALS: TEMP 98.2
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
[2022-12-06 13:01] LABS: Anisocytosis Slight; Basophils % (A) 0 %; Eosinophils % (A) 1 %; HCT 30.6 % (34.0-46.0); HGB 10.1 gm/dL (11.4-16.0); Hypochromasia Slight; Lymphocytes # (A) 0.8 k/uL (1.0-4.8); Lymphocytes % (A) 14 %; MCH 30.5 pg (25.0-35.0); MCHC 33.1 g/dL (31.0-37.0); MCV 92.4 fL (80.0-100.0); Mean Platelet Volume 9.5; Monocytes # (A) 0.4 k/uL (0-1.0); Monocytes % (A) 7 %; Neutrophils # (A) 4.3 k/uL (1.3-7.7); Neutrophils % (A) 75 %; Platelet Count 109 k/uL (150-450); RBC 3.31 m/uL (3.80-5.40); RDW 16.2 % (11.5-15.5); WBC 5.8 k/uL (3.8-10.6)
[2022-12-06] MEDS ORDERED: MORPHINE SULFATE 2 MG/ML SYRINGE IVP ONE (13:06)
[2022-12-06 13:23] LABS: Albumin 3.8 g/dL (3.5-5.0); Calcium 9.4 mg/dL (8.4-10.2); Magnesium 1.9 mg/dL (1.6-2.3); Potassium 3.6 mmol/L (3.5-5.1); Total Bilirubin 1.5 mg/dL (0.2-1.3); Total Protein 7.1 g/dL (6.3-8.2)
[2022-12-06 14:01] LABS: Appearance,Urine Clear (Clear); Bilirubin,Urine Negative (Negative); Blood,Urine Negative (Negative); Color,Urine Yellow; Glucose,Urine (UA) Negative (Negative); Ketones,Urine Negative (Negative); Leukocyte Esterase,Urine Negative (Negative); Nitrite,Urine Negative (Negative); PH, Urine 7.5 (5.0-8.0); Protein,Urine Trace (Negative); Specific Gravity,Urine 1.018 (1.001-1.035); Urobilinogen,Urine <2.0 mg/dL (<2.0)
--- NOTE | 2022-12-06 15:40 | CT ---
EXAMINATION TYPE: CT abdomen pelvis w con CT DLP: 1142.0 mGycm, Automated exposure control for dose reduction was used. DATE OF EXAM: 12/06/2022 2:14 PM COMPARISON: CT lumbar spine 12/06/2022, no medicine bone scan 11/05/2022, MRI lumbar spine 10/22/2022 CT Angio-chest abdomen pelvis 10/19/2019 CLINICAL INDICATION:Female, 82 years old with history of abdominal pain, nadeem flank pain. attn lumbar spine; Abdominal pain, bilateral flank pain TECHNIQUE: Axial CT of the abdomen and pelvis. Sagittal and coronal reformats were created on a [employer] workstation. Contrast used:100 ml mL of Isovue 300 with IV Contrast, Oral contrast used: without Oral Contrast FINDINGS: LOWER CHEST: Left lower lobe 8 mm pulmonary nodule (series 204, image 1), additional nodules measurin g 8 mm (series 24, image 5), 5mm and 3 mm (series 204, image 3) are also noted within the left lower lobe. Right lower lobe 5 mm pulmonary nodule (series 204, image 10) and 3 mm also the right lower lob e (series 204, image 1). Partially visualized noncalcified soft tissue nodule measures 1.7 x 1.4 cm i n the left lower lobe (series 201, image 1). Coronary artery calcifications are noted. Well-circumscribed cystic lesion adjacent to the thoracic aorta at the level of the esophageal hiatus measures 2.7 x 2.8 cm with central low fluid attenuation (series 201, image 14). Lesion is distinct from the esophagus consistent with dilated cisterna chyle is seen on lumbar spine MRI from 10/22/2022. ABDOMEN LIVER: Large confluent lesion within the posterior right hepatic lobe measures at least 8.2 x 8.3 x 7 .6 cm (series 201, image 26 and series 202, image 50) with early peripheral enhancement. Majority of the lesion becomes isointense to hepatic parenchyma on delayed phases. Mildly nodular hepatic contour . GALLBLADDER AND BILE DUCTS: Layering increased densities within the lumen consistent with gallstones are present. Mild dilatation of the common bile duct at 8 mm. PANCREAS: Unremarkable. SPLEEN: Scattered calcified granulomas. ADRENAL GLANDS: Unremarkable. KIDNEYS AND URETERS: Left cortical thinning. Multiple nonobstructing left renal calculi versus vascul ar calcifications. Largest of which in the lower pole measures 8 mm. No hydronephrosis. Kidneys are s ymmetrically enhancing with normal excretion on delayed phase is portions of the ureter are normal in appearance PELVIS BLADDER: Unremarkable REPRODUCTIVE: Uterus is atrophic versus surgically absent. ABDOMEN & PELVIS STOMACH AND BOWEL: Small hiatal hernia, duodenum is unremarkable. Hyperdensities are noted on early a nd delayed phases within the distal small bowel, likely relating to ingested food material versus med ications. No evidence for obstruction. Short segment of circumferential narrowing and wall thickening involving the distal descending colon (series 202, image 35). No appreciable pericolonic inflammator y changes distal and proximal bowel are normal in caliber. This may be secondary to peristalsis. PERITONEUM: No evidence of pneumoperitoneum or free fluid. VASCULATURE: Tortuous abdominal aorta. Severe atherosclerotic calcifications are present throughout t he abdominal aorta and its branches. Aortobiiliac stents in place are grossly patent. Infrarenal abd ominal aortic aneurysm measures 3.4 x 3.7 cm (series 201, image 34 and series 202, image 42). MUSCULOSKELETAL: Multilevel compression deformities are redemonstrated. Findings pertaining to the gilles mbar spine are better characterized on dedicated CT from same day. Degenerative changes of the hip mario alberto ints bilaterally. Moderate to severe degeneration of the pubic symphysis. Diffuse osteopenia. LYMPH NODES: Prominent pericaval lymph node measures 1.5 cm in short axis (series 201, image 34). Pre caval lymph node measures 1.3 cm in short axis (series 201, image 17). Right perigastric lymph node m easures 1.2 cm (series 201, image 18). SOFT TISSUE/ABDOMINAL WALL: Unremarkable IMPRESSION: 1. Indeterminate mass within the right hepatic lobe measures up to 8.3 cm. This is incompletely eval uated on single phase imaging. Recommend further evaluation with multiphase CT/MRI abdomen liver mass protocol. 2. Bilateral pulmonary nodules measuring up to 8 mm are suspicious. Recommend CT follow-up in 3-6 mon ths with an additional follow-up in 18-24 months, pending further workup of findings #1. 3. Prominent to enlarged upper abdominal lymph nodes. 4. Short segment of chronic wall thickening which may be secondary to peristalsis. CT abdomen pelvis with oral contrast and/or direct visualization with colonoscopy may be of benefit. 5. Multilevel compression deformities as characterized on CT lumbar spine from same day. 6. Additional chronic and incidental findings as detailed above.
--- NOTE | 2022-12-06 15:40 | CT ---
EXAMINATION TYPE: CT lumbar spine w con DATE OF EXAM: 12/06/2022 COMPARISON: CT abdomen pelvis 12/06/2022 HISTORY: Abdominal pain, bilateral flank pain CT DLP: 1142.1 mGycm Automated exposure control for dose reduction was used. CONTRAST: CT scan of the lumbar is performed with IV Contrast, patient injected with 100 ml mL of Isovue 300. Enhanced CT of the lumbar spine was performed. Bone and soft tissue window settings are submitted as well as coronal and sagittal reconstructions. Multilevel degenerative disc disease. Redemonstration of compression deformities throughout the lumba r spine. L1-L2: Remote compression fracture of the L1 and L2 vertebral bodies with up to 75% vertebral body he ight loss and approximately 6 mm of retropulsion of L1. Disc bulge in addition retropulsion leads to moderate central stenosis. Mild neural foraminal narrowing bilaterally. Bilateral facet arthropathy. L2-L3: Remote compression deformity of the L2 and L3 vertebral bodies with up to 75% vertebral height loss. 5 mm of retropulsion of L1 and up to 7 mm of retropulsion at L3. Disc bulging in addition to r etropulsion leads to moderate to severe central stenosis. Moderate to severe neural foraminal stenosi s. Bilateral facet arthropathy. L3-L4: Remote compression fracture of the L4 vertebral body with 25% vertebral body height loss. Up t o 2 mm of L4 retropulsion. Facet arthropathy, disc bulging and retropulsion contribute to severe spin al canal and severe bilateral neural foraminal stenosis. L4-L5: Disc bulge and facet arthropathy result in mild central spinal canal stenosis with severe bila teral neural foraminal stenosis. L5-S1: Diffuse bulging of the disc posteriorly with up to mild spinal canal stenosis. Bilateral facet arthropathy resulting in moderate left and severe right neural foraminal stenosis. Other: Partially visualized infrarenal abdominal aortic aneurysm. Nonobstructing left renal calculi a nd cholelithiasis. Cystic retrocrural lesion is also redemonstrated and thought to represent dilated cisterna chyli. Additional abdominal findings are better characterized on same-day CT abdomen pelvis. IMPRESSION: 1. Multilevel compression deformities most pronounced at L2 and L3 with levels varying degrees of ret ropulsion as described above. 2. Multilevel central spinal canal stenosis. Severe at the L3-L4 level. 3. Diffuse disc degeneration with associated osteoarthritic changes. 4. Multilevel moderate to severe neural foraminal stenosis as described above. 5. Abdominal findings are characterized on CT abdomen pelvis from same day.
[2022-12-06 17:23] VITALS: BP 143/87; PULSE 90; RESP 18
== END 2022-12-06 17:23 | disposition home or self-care (01) ==
LOC: EC 11:05
DX: S32.020A Wedge compression fracture of second lumbar vertebra, initial encounter for closed fracture (principal); S32.030A Wedge compression fracture of third lumbar vertebra, initial encounter for closed fracture; M51.36 Other intervertebral disc degeneration, lumbar region; M48.061 Spinal stenosis, lumbar region without neurogenic claudication; K21.9 Gastro-esophageal reflux disease without esophagitis; E78.5 Hyperlipidemia, unspecified; I10 Essential (primary) hypertension; M19.90 Unspecified osteoarthritis, unspecified site; Z86.711 Personal history of pulmonary embolism; F41.9 Anxiety disorder, unspecified; Z87.891 Personal history of nicotine dependence; Z79.1 Long term (current) use of non-steroidal anti-inflammatories (NSAID); Z79.82 Long term (current) use of aspirin; Z79.899 Other long term (current) drug therapy; Z88.6 Allergy status to analgesic agent; Z91.030 Bee allergy status; Z88.8 Allergy status to other drugs, medicaments and biological substances
CPT/HCPCS: 36415; 80053; 83690; 83735; 85025; 81003; 72132; 74177; 99284; 96374; J2270; Q9967

== ENCOUNTER → 2022-12-10 | Outpatient (CLI) | payer OTHER, MEDICARE, BC ==
[2022-12-10 14:46] VITALS: BP 117/75; PULSE 89; RESP 18; TEMP 99
--- NOTE | 2022-12-10 14:59 | P.PAINPG ---
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 Pain level is provoked at 10 /10 in intensity, constant, localized in the lumbar spine, dull in character w/o shooting pain. Pain is provoked by bending, twisting, lifting. Pain is alleviated with medications, use of a wheelchair for ambulatory assistance, repositioning and rest. Interventional pain procedures completed include BL RFA L3-L5 Patient is currently on Percocet 10/325 #120, Neurontin 300mg #90, Robaxin Patient denies any side effects of the medication(s), denies excessive drowsiness or sleepiness, denies suicidal ideation and reports that the current pain medication is helping to control the pain and improve activities of daily living. Patient denies any motor or sensory deficits. Patient denies any fever or night sweats, denies any change in the bowel movements or urination. Physical Examination: -Constitutional: Cooperative. Not in acute distress . - Neurologic: Cranial nerve II to XII intact. No focal neurological deficits. - Psychatric: Alert & oriented x 3. Matching mood & appropriate affect. Judgment and insight intact. - Musculoskeletal: Cervical spine: Muscle bulk/ tone/ strength in the bilateral upper extremities normal Vertebral body tenderness to palpation over Spurling test positive Distraction test positive Facet loading test positive TTP Thoracic spine Muscle bulk / tone/ strength in the bilateral paraspinal muscles normal Vertebral body tender to palpation over Facet loading test positive TTP Lumbar spine: Motor bulk/ tone/ strength lower extremities , thigh and legs : 5/5 Deep tendon reflexes : Normal Knee Jerk. Normal Ankle Jerk . Vertebral body tenderness to palpation over Lumbar paraspinal muscle BL L1-S1 positive to deep palpation Straight Leg Raise: positive at 30 degrees right side/ left side Gaenslen's Test positive Sacral spine : Severe tenderness over the Sacroiliac joint: right side / left side Range of motion: Flexion of the lumbar spine <60 degrees Range of motion: Extension of the lumbar spine <20 degrees Gaenslen's Test positive right side / left side Betty test: positive right side / left side Thigh Thrust Test positive right side / left side Sacral Thrust Test positive right side / left side Imaging: CT without contrast of the lumbar spine from 12/06/22 reviewed Assessment and plan: Chronic LBP secondary to lumbar DDD, spondylosis with facet arthropathy without myelopathy Recommendation of BL L1-S1 TPIs. May need a series of injections for optimal pain relief. Also medication management. Robaxin 500mg w 1 RF. Risks, benefits discussed and pt verbalized understanding. All questions answered. I have spent less than 30 minutes on patient care today. Dr Dinh was available by phone for the evaluation of this patient. The time was used to review the medical records including relevant urine studies and Prescription history (MAPs), review of the available imaging, evaluation and examination of the patient, coordination of care with the medical staff and if applicable referring physicians, as well as creation of the medical record - Pain Location Lower Back Non-Pharmacological Interventions: Heat, Ice, Inactivity, Position/Reposition, Sitting Pharmacological Interventions: Block, Epidural, PRN Medication, Scheduled Medication, Topical Medication PQRS Narrative: Smoking Status Current every day smoker Hx Alcohol Use (MH) Yes Home Medications: Ambulatory Orders ALPRAZolam [Xanax] 0.25 mg PO BID 01/21/17 Digoxin [Lanoxin] 125 mcg PO DAILY 01/21/17 Gabapentin [Neurontin] 300 mg PO TID 01/21/17 Pantoprazole Sodium 40 mg PO 1200 01/21/17 Atorvastatin [Lipitor] 80 mg PO HS 08/30/20 Furosemide [Lasix] 40 mg PO Q2D 08/30/20 Vitamin C/Biotin [Hair, Skin and Nails Chew] 1 tab PO DAILY 08/30/20 ALPRAZolam [Xanax] 0.5 mg PO 1200 10/01/20 Turmeric Root Extract [Turmeric] 500 mg PO DAILY 10/01/20 hydroCHLOROthiazide [Hydrodiuril] 25 mg PO DAILY 03/13/21 oxyCODONE-APAP 10-325MG [Percocet 10-325 mg] 1 tab PO QID 08/19/21 Calcium Carbonate/Vitamin D3 [Calcium 600 mg-D3 10 Mcg (400 Iu)] 2 each PO DAILY 09/12/21 Alendronate Sodium [Fosamax] 70 mg PO SA 12/19/21 Clopidogrel [Plavix] 75 mg PO 1200 02/18/22 Aspirin 81 mg PO BID 07/21/22 Cephalexin [Keflex] 500 mg PO Q6HR 1 Days #40 cap 11/05/22 methocarbamoL [Robaxin] 500 mg PO BID 30 Days #60 tab 12/10/22 Controlled Substance Measures - Controlled Substance Measures Is patient prescribed a controlled substance at discharge?: No
== END ==
LOC: PNWHC3 14:19
PROVIDERS: ATTEND Specialist
DX: M51.36 Other intervertebral disc degeneration, lumbar region (principal); M47.816 Spondylosis without myelopathy or radiculopathy, lumbar region; G89.29 Other chronic pain; F17.200 Nicotine dependence, unspecified, uncomplicated; Z79.82 Long term (current) use of aspirin; Z88.6 Allergy status to analgesic agent; Z91.02 Food additives allergy status; Z91.048 Other nonmedicinal substance allergy status
CPT/HCPCS: 99211

== ENCOUNTER 2023-01-15 09:11 | Day surgery (SDC) | payer MEDICARE, BC ==
[2023-01-15 10:17] VITALS: TEMP 97.7
[2023-01-15 10:18] LABS: Mean Platelet Volume 8.8; Platelet Count 159 k/uL (150-450)
[2023-01-15 10:41] LABS: INR 1.6 (<1.2); Prothrombin Time 15.6 sec (9.0-12.0)
[2023-01-15] MEDS ORDERED: HYDROcodone/APAP 5-325MG 1 EACH TAB PO PRN (11:40)
--- NOTE | 2023-01-15 13:04 | CT ---
EXAMINATION TYPE: CT biopsy liver DATE OF EXAM: 01/15/2023 11:29 AM CLINICAL INDICATION:Female, 82 years old with history of K76.89 liver mass; COMPARISON: CT 12/06/2022 CT DLP: 1251 mGycm, Automated exposure control for dose reduction was used. Contrast used: none Oral contrast used: none ATTENDING: Dr. Sreedhar Roman TECHNIQUE: CT guided percutaneous biopsy of using coaxial method. The Radiologist intra-service time with the pa tient under sedation was [address] more [address] dose reduction strategies were utilized during th is examination. Total CT dose 1251 mGycm. FINDINGS: The procedure was explained to the patient including risks of bleeding, bruising, infection, damage to nearby organs and need for additional therapy including potential surgery. All questions were ans wered and consent was obtained. The previous studies were reviewed. The patient was placed on the CT couch in the left lateral decub itus The overlying skin was marked and prepped using sterile method. Timeout was taken per protocol. Then local anesthesia was applied and a coaxial needle was introduced on the inferior aspect of the right hepatic lobe. The coaxial needle tip was directed into the area of the mass with CT guidance. Three 20 gauge coaxial biopsies were then obtained. Following the procedure the needle was removed an d sterile dressing was applied to the percutaneous site. Post biopsy imaging demonstrated no evidenc e of the right. Patient was taken for postprocedure observation in stable condition. IMPRESSIONS: Status post percutaneous right inferior hepatic lobe mass biopsy as described above. Pathology result s pending.
[2023-01-15 14:17] VITALS: RESP 16
[2023-01-15 16:10] VITALS: BP 100/63; PULSE 83
== END 2023-01-15 15:32 | disposition home or self-care (01) ==
LOC: RADPROMAIN 09:11
PROVIDERS: ATTEND Internal Medicine Hematology & Oncology
DX: C80.1 Malignant (primary) neoplasm, unspecified (principal); C78.7 Secondary malignant neoplasm of liver and intrahepatic bile duct
CPT/HCPCS: 47000; 77012; 85049; 85610; 88307; 88341; 88342